=== PATIENT | male | born 1970 | race Caucasian/White ===

== ENCOUNTER 2017-03-30 00:41 | Emergency (ER) | payer BC ==
[~2017-03-30] VITALS: Ht 172.7 cm; Wt 86.2 kg
[~2017-03-30 00:41] MED LIST: ACHYD1T PO; ALPR0.25 PO; CIPR500T4 PO; CIPR500T78 PO; HYDR-3816 PO; HYDR-3876 PO; HYDR-753 PO; HYDR118S10 PO; LEVO500T2 PO; MTP50T PO; NITR-65 PO; NITR-68 PO; NITR100C3 PO; OXYC-12 PO; OXYC-465 PO; POTA10TA36 PO; TAMS0.4C2 PO; TAMS0.4C98 PO
[2017-03-30] MEDS ORDERED: ALFUZOSIN HCL 10 MG TAB (UROXATRAL) PO ONE ×2 (00:52→03:00)
[2017-03-30] MEDS ORDERED: KETOROLAC 30 MG/ML VIAL ONE (00:52)
[2017-03-30] MEDS ORDERED: ONDANSETRON 4 MG/2 ML (SDV) Z0FRAN ONE (00:52)
[2017-03-30] MEDS ORDERED: NS IV 1000 ML 1,000 ML ONE (00:53)
[2017-03-30] MEDS ORDERED: morphine INJ 10 MG/ML 1ML (SYR OR VIAL) ONE (02:15)
[2017-03-30 02:36] LABS: BILIRUBIN,URINE NEGATIVE (NEGATIVE); KETONES,URINE NEGATIVE (NEGATIVE); LEUKOCYTE ESTERASE ,URINE 1+ (NEGATIVE); NITRITE,URINE NEGATIVE (NEGATIVE); PH,URINE 5 (5-9); PROTEIN,URINE 2+ (NEGATIVE); SQUAMOUS EPITHELIAL CELL,UR 0-2 /HPF; UROBILINOGEN,URINE 1 MG/DL (NORMAL)
--- OUTSIDE RECORDS SUMMARY | 2017-03-30 02:39 | XMS REPORT | Continuity of Care Document ---
Author Author [facility] Organization [facility] Address Unknown Phone Unavailable Allergies Active Description Code Type Severity Reaction Onset Reported/Identified Relationship to Patient Clinical Status Yes No Known Drug Allergies [id number] Drug Allergy Unknown N/ A 04/07/2016 Medications Problems Date Dx Coded Attending Type Code Diagnosis Diagnosed By 03/11/2016 TRACY FOFANA MD Ot N20.2 CALCULUS OF KIDNEY WITH CALCULUS OF URET 03/11/2016 TRACY FOFANA MD Ot R10.32 LEFT LOWER QUADRANT PAIN 03/12/2016 TRACY FOFANA MD, Ot N20.2 CALCULUS OF KIDNEY WITH CALCULUS OF URET 03/12/2016 TRACY FOFANA MD Ot R10.32 LEFT LOWER QUADRANT PAIN 03/12/2016 Ot 592.0 CALCULUS OF KIDNEY 03/12/2016 Ot 592.1 CALCULUS OF URETER 03/12/2016 RACHEL WAITE MD Ot N20.0 CALCULUS OF KIDNEY 03/12/2016 RACHEL WAITE MD Ot N20.1 CALCULUS OF URETER 03/12/2016 RACHEL WAITE MD Ot Z01.818 ENCOUNTER FOR OTHER PREPROCEDURAL EXAMIN 03/15/2016 RACHEL WAITE MD Ot N20.0 CALCULUS OF KIDNEY 03/15/2016 RACHEL WAITE MD Ot N20.1 CALCULUS OF URETER 03/15/2016 RACHEL WAITE MD Ot Z01.818 ENCOUNTER FOR OTHER PREPROCEDURAL EXAMIN 03/16/2016 RACHEL WAITE MD Ot N20.2 CALCULUS OF KIDNEY WITH CALCULUS OF URET 03/17/2016 RACHEL WAITE MD Ot N20.2 CALCULUS OF KIDNEY WITH CALCULUS OF URET 03/18/2016 RACHEL WAITE MD Ot N20.0 CALCULUS OF KIDNEY 03/18/2016 RACHEL WAITE MD Ot N20.1 CALCULUS OF URETER 03/18/2016 RACHEL WAITE MD Ot Z01.818 ENCOUNTER FOR OTHER PREPROCEDURAL EXAMIN 03/18/2016 KINSEY CALI FIELD APPRAISER Ot N20.1 CALCULUS OF URETER 03/18/2016 KINSEY CALI FIELD APPRAISER Ot R10.32 LEFT LOWER QUADRANT PAIN 03/18/2016 KINSEY CALI FIELD APPRAISER Ot R11.10 VOMITING, UNSPECIFIED 03/19/2016 KINSEY CALI FIELD APPRAISER Ot N20.1 CALCULUS OF URETER 03/19/2016 KINSEY CALI FIELD APPRAISER Ot R10.32 LEFT LOWER QUADRANT PAIN 03/19/2016 KINSEY CALI FIELD APPRAISER Ot R11.10 VOMITING, UNSPECIFIED 03/31/2016 RACHEL WAITE MD Ot N20.0 CALCULUS OF KIDNEY 03/31/2016 RACHEL WAITE MD Ot Z98.89 OTHER SPECIFIED POSTPROCEDURAL STATES 04/07/2016 Ot 592.0 CALCULUS OF KIDNEY 04/07/2016 Ot 592.1 CALCULUS OF URETER 04/07/2016 RACHEL WAITE MD Ot N20.2 CALCULUS OF KIDNEY WITH CALCULUS OF URET 04/07/2016 MARIANN RODRIGUES, RACHEL Lee Ot Z01.818 ENCOUNTER FOR OTHER PREPROCEDURAL EXAMIN 04/09/2016 RACHEL WAITE MD Ot N20.2 CALCULUS OF KIDNEY WITH CALCULUS OF URET 04/09/2016 RACHEL WAITE MD Ot Z01.818 ENCOUNTER FOR OTHER PREPROCEDURAL EXAMIN 04/13/2016 RACHEL WAITE MD Ot N20.0 CALCULUS OF KIDNEY 04/13/2016 RACHEL WAITE MD Ot Z98.89 OTHER SPECIFIED POSTPROCEDURAL STATES 04/13/2016 RACHEL WAITE MD Ot N20.0 CALCULUS OF KIDNEY 04/15/2016 RCAHEL WAITE MD Ot N20.0 CALCULUS OF KIDNEY 04/15/2016 RACHEL WAITE MD Ot N20.0 CALCULUS OF KIDNEY 04/15/2016 RACHEL WAITE MD Ot Z98.89 OTHER SPECIFIED POSTPROCEDURAL STATES 05/04/2016 RACHEL WAITE MD Ot N20.0 CALCULUS OF KIDNEY 05/12/2016 MARIANN RODRIGUES, RACHEL A Ot N20.0 CALCULUS OF KIDNEY 06/10/2016 MARIANN RODRIGUES, RACHEL A Ot N20.0 CALCULUS OF KIDNEY 06/22/2016 MARIANN RODRIGUES, RACHEL Rosa Ot N20.0 CALCULUS OF KIDNEY 06/22/2016 MARIANN RODRIGUES, RACHEL Lee Ot Z01.818 ENCOUNTER FOR OTHER PREPROCEDURAL EXAMIN 06/24/2016 MARIANN RODRIGUES, RACHEL Lee Ot N20.0 CALCULUS OF KIDNEY Procedures Results Test Result Range Methicillin resistant Staphylococcus aureus (MRSA) screening culture - 08:01 Methicillin resistant Staphylococcus aureus (MRSA) screening culture NEG NRG Complete blood count (CBC) with automated white blood cell (WBC) differential - 03/18/16 17:49 Blood leukocytes automated count (number/volume) 13.3 10*3/ uL 4.3-11.0 Blood erythrocytes automated count (number/volume) 4.75 10*6 /uL 4.35-5.85 Venous blood hemoglobin measurement (mass/volume) 15.8 g/dL 13.3-17.7 Blood hematocrit (volume fraction) 46 % 40-54 Automated erythrocyte mean corpuscular volume 98 [foz_us] 80-99 Automated erythrocyte mean corpuscular hemoglobin (mass per erythrocyte) 33 pg 25-34 Automated erythrocyte mean corpuscular hemoglobin concentration measurement ( mass/volume) 34 g/dL 32-36 Automated erythrocyte distribution width ratio 13.1 % 10.0-14.5 Automated blood platelet count (count/volume) 213 10*3/uL 130-400 Automated blood platelet mean volume measurement 8.8 [foz_us ] 7.4-10.4 Automated blood neutrophils/100 leukocytes 76 % 42-75 Automated blood lymphocytes/100 leukocytes 12 % 12-44 Blood monocytes/100 leukocytes 11 % 0-12 Automated blood eosinophils/100 leukocytes 0 % 0-10 Automated blood basophils/100 leukocytes 0 % 0-10 Blood neutrophils automated count (number/volume) 10.1 10*3 1.8-7.8 Blood lymphocytes automated count (number/volume) 1.6 10*3 1.0-4.0 Blood monocytes automated count (number/volume) 1.5 10*3 0.0-1.0 Automated eosinophil count 0.0 10*3/uL 0.0-0.3 Automated blood basophil count (count/volume) 0.0 10*3/uL 0.0-0.1 Whole blood basic metabolic panel - 03/18/16 17:49 Serum or plasma sodium measurement (moles/volume) 143 mmol/ L 135-145 Serum or plasma potassium measurement (moles/volume) 3.9 mmol/L 3.6-5.0 Serum or plasma chloride measurement (moles/volume) 103 mmol /L 98-107 Carbon dioxide 28 mmol/L 21-32 Serum or plasma anion gap determination (moles/volume) 12 mmol/L 5-14 Serum or plasma urea nitrogen measurement (mass/volume) 11 mg/dL 7-18 Serum or plasma creatinine measurement (mass/volume) 1.28 mg /dL 0.60-1.30 Serum or plasma urea nitrogen/creatinine mass ratio 9 NRG Serum or plasma creatinine measurement with calculation of estimated glomerular filtration rate 60 NRG Serum or plasma glucose measurement (mass/volume) 124 mg/dL 70-105 Serum or plasma calcium measurement (mass/volume) 9.2 mg/dL 8.5-10.1 Complete urinalysis with reflex to culture - 03/18/16 18:53 Urine color determination WILMER NRG Urine clarity determination CLEAR NRG Urine pH measurement by test strip 6 5- 9 Specific gravity of urine by test strip 1.020 1.016-1.022 Urine protein assay by test strip, semi-quantitative 2+ NEGATIVE Urine glucose detection by automated test strip NEGATIVE NEGATIVE Erythrocytes detection in urine sediment by light microscopy 5+ NEGATIVE Urine ketones detection by automated test strip NEGATIVE NEGATIVE Urine nitrite detection by test strip NEGATIVE NEGATIVE Urine total bilirubin detection by test strip NEGATIVE NEGATIVE Urine urobilinogen measurement by automated test strip (mass/volume) 1 mg/dL NORMAL Urine leukocyte esterase detection by dipstick 2+ NEGATIVE Automated urine sediment erythrocyte count by microscopy (number/high power field) [HPF] NRG Automated urine sediment leukocyte count by microscopy (number/high power field ) [HPF] NRG Bacteria detection in urine sediment by light microscopy TRACE NRG Crystals detection in urine sediment by light microscopy NONE NRG Casts detection in urine sediment by light microscopy NONE NRG Mucus detection in urine sediment by light microscopy NEGATIVE NRG Complete urinalysis with reflex to culture YES NRG Bacterial urine culture - 03/18/16 18:53 Bacterial urine culture NG NRG Methicillin resistant Staphylococcus aureus (MRSA) screening culture - 06:15 Methicillin resistant Staphylococcus aureus (MRSA) screening culture NEG NRG Complete urinalysis with reflex to culture - 03/30/17 01:10 Urine color determination YELLOW NRG Urine clarity determination SLIGHTLY CLOUDY NRG Urine pH measurement by test strip 5 5- 9 Specific gravity of urine by test strip 1.025 1.016-1.022 Urine protein assay by test strip, semi-quantitative 2+ NEGATIVE Urine glucose detection by automated test strip NEGATIVE NEGATIVE Erythrocytes detection in urine sediment by light microscopy 5+ NEGATIVE Urine ketones detection by automated test strip NEGATIVE NEGATIVE Urine nitrite detection by test strip NEGATIVE NEGATIVE Urine total bilirubin detection by test strip NEGATIVE NEGATIVE Urine urobilinogen measurement by automated test strip (mass/volume) 1 mg/dL NORMAL Urine leukocyte esterase detection by dipstick 1+ NEGATIVE Automated urine sediment erythrocyte count by microscopy (number/high power field) > [HPF] NRG Automated urine sediment leukocyte count by microscopy (number/high power field ) NONE NRG Bacteria detection in urine sediment by light microscopy NEGATIVE NRG Squamous epithelial cells detection in urine sediment by light microscopy 0-2 NRG Crystals detection in urine sediment by light microscopy NONE NRG Casts detection in urine sediment by light microscopy NONE NRG Mucus detection in urine sediment by light microscopy SMALL NRG Complete urinalysis with reflex to culture NO NRG Urine drug screening test - 03/30/17 01:10 Urine phencyclidine detection by screening method NEGATIVE NEGATIVE Urine benzodiazepines detection by screening method POSITIVE NEGATIVE Urine cocaine detection NEGATIVE NEGATIVE Urine amphetamines detection by screening method NEGATIVE NEGATIVE Urine methamphetamine detection by screening method NEGATIVE NEGATIVE Urine cannabinoids detection by screening method NEGATIVE NEGATIVE Urine opiates detection by screening method POSITIVE NEGATIVE Urine barbiturates detection NEGATIVE NEGATIVE Screening urine tricyclic antidepressants detection NEGATIVE NEGATIVE Urine methadone detection by screening method NEGATIVE NEGATIVE Urine oxycodone detection NEGATIVE NEGATIVE Urine propoxyphene detection NEGATIVE NEGATIVE Encounters ACCT No. Visit Date/Time Discharge Status Pt. Type Provider Facility Loc./Unit Complaint [id number] 04/13/2016 06:02:00 2015 09:50:00 DIS Outpatient MARIANN RODRIGUES, RACHEL [facility] SDC LEFT URETERAL AND RIGHT RENAL STONE [id number] 04/07/2016 05:38:00 2015 10:20:00 DIS Outpatient RACHEL WAITE MD [facility] PREOP LT URETERAL AND RT RENAL STONE [id number] 03/18/2016 17:39:00 2015 20:46:00 DIS Emergency KINSEY CALI APRN [facility] ER VOMITING;DEHYDRATION [id number] 03/16/2016 07:34:00 2015 12:50:00 DIS Outpatient RACHEL WAITE MD [facility] SDC LEFT STONE [id number] 03/12/2016 05:32:00 2015 09:41:00 DIS Outpatient RACHEL WAITE MD [facility] PREOP LEFT STONE [id number] 03/11/2016 08:14:00 2015 10:12:00 DIS Emergency TRACY FOFANA MD [facility] ER LEFT FLANK PAIN [id number] 02/11/2014 08:52:00 2013 00:01:00 DIS Outpatient [id number] 01/22/2014 15:29:00 2013 23:59:59 CLS Outpatient [id number] 01/08/2014 15:02:00 2013 23:59:59 CLS Outpatient [id number] 12/12/2013 06:25:00 2013 10:40:00 DIS Outpatient [id number] 12/11/2013 07:23:00 2013 23:59:59 CLS Outpatient [id number] 12/10/2013 14:38:00 2013 23:59:59 CLS Outpatient [id number] 11/27/2013 07:04:00 2013 12:30:00 DIS Outpatient [id number] 11/23/2013 12:00:00 2013 23:59:59 CLS Outpatient [id number] 11/21/2013 15:09:00 2013 23:59:59 CLS Outpatient [id number] 03/30/2017 02:37:00 Document Registration [id number] 06/23/2016 09:00:00 PEN Preadmit RACHEL WAITE MD [facility] SDC RIGHT STONE [id number] 06/21/2016 05:43:00 ACT Outpatient RACHEL WAITE MD [facility] PREOP RIGHT STONE [id number] 06/09/2016 15:29:00 ACT Outpatient RACHEL WAITE MD [facility] RAD RT RENAL STONE [id number] 05/03/2016 09:23:00 ACT Outpatient RACHEL WAITE MD [facility] RAD DX BI RENAL STONES [id number] 03/30/2016 13:08:00 ACT Outpatient RACHEL WAITE MD [facility] RAD UR STONE BILATERAL [id number] 05/09/2014 00:00:00 Document Registration
[2017-03-30] MEDS ORDERED: RX-ONDANSETRON 4 MG ODT (ZOFRAN) PPK #4 PO STA (02:56)
[2017-03-30] MEDS ORDERED: LEVOFLOXACIN 500 MG TAB (LEVAQUIN) PO STA (02:56)
[2017-03-30] MEDS ORDERED: morphine INJ 10 MG/ML 1ML (SYR OR VIAL) IVP STA (02:56)
[2017-03-30 02:57] LABS: BASOPHILS % (AUTO) 0 % (0-10); EOSINOPHILS % (AUTO) 0 % (0-10); LYMPHOCYTES # (AUTO) 0.9 X 10^3 (1.0-4.0); LYMPHOCYTES % (AUTO) 8 % (12-44); MEAN CORPUSCULAR HEMOGLOBIN 34 PG (25-34); MEAN CORPUSCULAR HGB CONC 34 G/DL (32-36); MEAN CORPUSCULAR VOLUME 98 FL (80-99); MEAN PLATELET VOLUME 8.7 FL (7.4-10.4); MONOCYTES # (AUTO) 0.7 X 10^3 (0.0-1.0); MONOCYTES % (AUTO) 6 % (0-12); NEUTROPHILS % (AUTO) 86 % (42-75); PLATELET COUNT 247 10^3/uL (130-400); RED BLOOD COUNT 4.66 10^6/uL (4.35-5.85); RED CELL DISTRIBUTION WIDTH 13.2 % (10.0-14.5); WHITE BLOOD COUNT 11.6 10^3/uL (4.3-11.0)
[2017-03-30 02:58] LABS: ALBUMIN 4.3 GM/DL (3.2-4.5); BILIRUBIN,TOTAL 0.5 MG/DL (0.1-1.0); CALCIUM 9.3 MG/DL (8.5-10.1); CREATININE SERUM 1.29 MG/DL (0.60-1.30); POTASSIUM 4.2 MMOL/L (3.6-5.0); TOTAL PROTEIN 7.3 GM/DL (6.4-8.2)
[2017-03-30] MEDS ORDERED: KETOROLAC 30 MG/ML VIAL IVP ONE (03:00)
[2017-03-30] MEDS ORDERED: morphine INJ 10 MG/ML 1ML (SYR OR VIAL) IVP ONE (03:00)
[2017-03-30] MEDS ORDERED: RX-HYDROCODONE/APAP 5/325 MG #4 TAB PK PO PRN (03:00)
[2017-03-30] MEDS ORDERED: NS IV 1000 ML 1,000 ML IV ONE (03:00)
[2017-03-30] MEDS ORDERED: HYDR-87 PO (03:00)
[2017-03-30] MEDS ORDERED: ONDA4TAB8 PO (03:00)
[2017-03-30] MEDS ORDERED: ONDANSETRON 4 MG/2 ML (SDV) Z0FRAN IVP ONE (03:00)
[2017-03-30] MEDS ORDERED: TAMS0.4C98 PO ×2 (03:00→14:53)
[2017-03-30] MEDS ORDERED: LEVO500T2 PO (03:00)
--- NOTE | 2017-03-30 03:01 | ED Abdominal Pain ---
General Chief Complaint: Abdominal/GI Problems Stated Complaint: KIDNEY STONE Nursing Triage Note: RIGHT FLANK PAIN, NAUSEA SINCE APPROX. 199903/29/17 HX RENAL STONES Sepsis Screen: No Definite Risk Source of Information: Patient History of Present Illness Time Seen By Provider: 00:48 Initial Comments PT STATES HE IS PASSING A KIDNEY STONE--C/O RLQ PAIN RADIATING TO RIGHT FLANK-- SUDDEN ONSET OF PAIN AT 2000 TONIGHT C/O NAUSEA, NO VOMITING + SWEATS NO PAIN ON URINATION OR DIFFICULTY ON URINATION HAS HISTORY OF AT LEAST 8 KIDNEY STONES, PASSED ONE ON HIS OWN 2 WEEKS AGO HAS HAD TO HAVE LITHOTRIPSY X2 LAST YEAR, BY DR. WAITE PCP: [facility] UROLOGY: DR. WAITE Allergies and Home Medications Allergies Coded Allergies: No Known Drug Allergies (Unverified , 04/07/16) Home Medications Alprazolam 0.25 Mg Tablet, 0.25 MG PO HS, (Reported) Hydrocodone/Acetaminophen 1 Each Tablet, 1-2 EACH PO Q4H PRN for PAIN, #60 Prescribed by: TREVOR RODRIGUEZ on 04/13/16 09 Hydrocodone/Ibuprofen 1 Each Tablet, 1-2 EACH PO Q4H, #20 Prescribed by: SHERRI MARY on 03/30/17 0300 Levofloxacin 500 Mg Tablet, 500 MG PO DAILY, #10 Prescribed by: SHERRI MARY on 03/30/17 0300 Metoprolol Tartrate 50 Mg Tablet, 50 MG PO DAILY, (Reported) Nitrofurantoin Macrocrystal 100 Mg Capsule, 100 MG PO BID, #14 Prescribed by: TREVOR RODRIGUEZ on 04/13/16 09 Ondansetron 4 Mg Tab.rapdis, 4 MG PO Q4H, #10 Prescribed by: SHERRI MARY on 03/30/17 0300 Tamsulosin HCl 0.4 Mg Cap, 0.4 MG PO DAILY, #14 Prescribed by: TREVOR RODRIGUEZ on 04/13/16 09 Tamsulosin HCl 0.4 Mg Cap, 0.4 MG PO DAILY, #10 Prescribed by: SHERRI MARY on 03/30/17 0300 Review of Systems Constitutional: see HPI, diaphoresis, No fever Respiratory: No Symptoms Reported Cardiovascular: No Symptoms Reported Gastrointestinal: See HPI, Abdominal Pain, Denies Constipated, Denies Diarrhea , Nausea, Denies Vomiting Genitourinary: See HPI, Flank Pain, Denies Hematuria Musculoskeletal: no symptoms reported Skin: no symptoms reported Psychiatric/Neurological: No Symptoms Reported Endocrine: No Symptoms Reported Hematologic/Lymphatic: No Symptoms Reported Past Btpixnx-Ndytfu-Bhqcbd Hx Patient Social History Alcohol Use: Rarely Uses Recreational Drug Use: No Smoking Status: Former Smoker Type Used: Cigarettes Recent Foreign Travel: No Contact w/Someone Who Travel: No Recent Infectious Disease Expo: No Recent Hopitalizations: No Immunizations Up To Date Tetanus Booster (TDap): Unknown Seasonal Allergies Seasonal Allergies: No Surgeries HX Surgeries: Yes (C-SPINEFUSION; LITHOTRIPSIES FOR KIDNEY STONES; BILATERAL KNEE SCOPES) Surgeries: Orthopedic, Renal Respiratory Hx Respiratory Disorders: No Cardiovascular Hx Cardiac Disorders: Yes Cardiac Disorders: Hypertension Neurological Hx Neurological Disorders: No Reproductive System Hx Reproductive Disorders: No Sexually Transmitted Disease: No HIV/AIDS: No Genitourinary Hx Genitourinary Disorders: Yes Genitourinary Disorders: Kidney Stones Gastrointestinal Hx Gastrointestinal Disorders: No Musculoskeletal Hx Musculoskeletal Disorders: Yes (KNEE SCOPES BILATERALLY) Endocrine Hx Endocrine Disorders: No HEENT HX ENT Disorders: No Loss of Vision: Denies Hearing Impairment: Denies Cancer Hx Cancer: No Psychosocial Hx Psychiatric Problems: No Integumentary HX Skin/Integumentary Disorder: No Blood Transfusions Hx Blood Disorders: No Adverse Reaction to a Blood Tr: No (N/A) Physical Exam Vital Signs VS - Last 72 Hours, by Label 03/30/17 03/30/17 00:55 03:13 Temp 97.6 97.1 Pulse 76 70 Resp 18 18 B/P (MAP) 132/92 Pulse Ox 97 99 O2 Delivery Room Air Room Air Capillary Refill : Less Than 3 Seconds General Appearance: WD/WN, mild distress (DUE TO PAIN, ROCKING BACK AND FORTH) Neck: normal inspection Respiratory: normal breath sounds, no respiratory distress Cardiovascular: regular rate, rhythm Gastrointestinal: normal bowel sounds, soft, No distended, No guarding, No rebound, tenderness (RLQ/RIGHT FLANK), No hernia, No mass Extremities: normal inspection, no pedal edema, normal capillary refill Back: CVA tenderness (R) Neurologic/Psychiatric: wheel alignment mechanic II-XII nml as tested, no motor/sensory deficits, alert, oriented x 3 Skin: normal color, warm/dry Progress/Results/Core Measures Results/Orders Lab Results Laboratory Tests Test 03/30/17 01:10 Range/Units White Blood Count 11.6 H 4.3-11.0 10^3/uL Red Blood Count 4.66 4.35-5.85 10^6/uL Hemoglobin 15.6 13.3-17.7 G/DL Hematocrit 46 40-54 % Mean Corpuscular Volume 98 80-99 FL Mean Corpuscular Hemoglobin 34 25-34 PG Mean Corpuscular Hemoglobin Concent 34 32-36 G/DL Red Cell Distribution Width 13.2 10.0-14.5 % Platelet Count 247 130-400 10^3/uL Mean Platelet Volume 8.7 7.4-10.4 FL Neutrophils (%) (Auto) 86 H 42-75 % Lymphocytes (%) (Auto) 8 L 12-44 % Monocytes (%) (Auto) 6 0-12 % Eosinophils (%) (Auto) 0 0-10 % Basophils (%) (Auto) 0 0-10 % Neutrophils # (Auto) 10.0 H 1.8-7.8 X 10^3 Lymphocytes # (Auto) 0.9 L 1.0-4.0 X 10^3 Monocytes # (Auto) 0.7 0.0-1.0 X 10^3 Eosinophils # (Auto) 0.0 0.0-0.3 10^3/uL Basophils # (Auto) 0.0 0.0-0.1 10^3/uL Urine Color YELLOW Urine Clarity SLIGHTLY CLOUDY Urine pH 5 5-9 Urine Specific Hiram 1.025 H 1.016-1.022 Urine Protein 2+ H NEGATIVE Urine Glucose (UA) NEGATIVE NEGATIVE Urine Ketones NEGATIVE NEGATIVE Urine Nitrite NEGATIVE NEGATIVE Urine Bilirubin NEGATIVE NEGATIVE Urine Urobilinogen 1 NORMAL MG/DL Urine Leukocyte Esterase 1+ H NEGATIVE Urine RBC (Auto) 5+ H NEGATIVE Urine RBC >100 H /HPF Urine WBC NONE /HPF Urine Squamous Epithelial Cells 0-2 /HPF Urine Crystals NONE /LPF Urine Bacteria NEGATIVE /HPF Urine Casts NONE /LPF Urine Mucus SMALL H /LPF Urine Culture Indicated NO Sodium Level 139 135-145 MMOL/L Potassium Level 4.2 3.6-5.0 MMOL/L Chloride Level 102 98-107 MMOL/L Carbon Dioxide Level 26 21-32 MMOL/L Anion Gap 11 5-14 MMOL/L Blood Urea Nitrogen 15 7-18 MG/DL Creatinine 1.29 0.60-1.30 MG/DL Estimat Glomerular Filtration Rate 59 BUN/Creatinine Ratio 12 Glucose Level 159 H 70-105 MG/DL Calcium Level 9.3 8.5-10.1 MG/DL Total Bilirubin 0.5 0.1-1.0 MG/DL Aspartate Amino Transf (AST/SGOT) 20 5-34 U/L Alanine Aminotransferase (ALT/SGPT) 22 0-55 U/L Alkaline Phosphatase 57 40-136 U/L Total Protein 7.3 6.4-8.2 GM/DL Albumin 4.3 3.2-4.5 GM/DL Urine Opiates Screen POSITIVE H NEGATIVE Urine Oxycodone Screen NEGATIVE NEGATIVE Urine Methadone Screen NEGATIVE NEGATIVE Urine Propoxyphene Screen NEGATIVE NEGATIVE Urine Barbiturates Screen NEGATIVE NEGATIVE Ur Tricyclic Antidepressants Screen NEGATIVE NEGATIVE Urine Phencyclidine Screen NEGATIVE NEGATIVE Urine Amphetamines Screen NEGATIVE NEGATIVE Urine Methamphetamines Screen NEGATIVE NEGATIVE Urine Benzodiazepines Screen POSITIVE H NEGATIVE Urine Cocaine Screen NEGATIVE NEGATIVE Urine Cannabinoids Screen NEGATIVE NEGATIVE My Orders Orders - SHERRI MARY DO Cbc With Automated Diff (03/30/17 01:10) Comprehensive Metabolic Panel (03/30/17 01:10) Drug Screen Stat (Urine) (03/30/17 01:10) Urinalysis (03/30/17 01:10) Ns Iv 1000 Ml (Sodium Chloride 0.9%) (03/30/17 03:00) Ondansetron Injection (Zofran Injectio (03/30/17 03:00) Ketorolac Injection (Toradol Injection) (03/30/17 03:00) Alfuzosin Tablet (Uroxatral Tablet) (03/30/17 03:00) Morphine Injection (Morphine Injection (03/30/17 03:00) Ct Abd/Pelvis Wo(Kidney Stone) (03/30/17 02:56) Abdomen/Kub 1view (03/30/17 02:56) Morphine Injection (Morphine Injection (03/30/17 02:56) Levofloxacin Tablet (Levaquin Tablet) (03/30/17 02:56) Rx-Hydrocodone/Apap 5-325 Mg (Rx-Vicodin (03/30/17 03:00) Rx-Ondansetron Po (Rx-Zofran Po) (03/30/17 02:56) Medications Given in ED Current Medications Medications Dose Ordered Sig/Noni Route Start Time Stop Time Status Last Admin Dose Admin Acetaminophen/ Hydrocodone Bitart 1 ea Q4H PRN PO 03/30/17 03:00 03/30/17 03:22 DC 03/30/17 03:11 1 EA Alfuzosin HCl 10 mg ONCE ONCE PO 03/30/17 03:00 03/30/17 03:01 DC 03/30/17 01:00 10 MG Ketorolac Tromethamine 30 mg ONCE ONCE IVP 03/30/17 03:00 03/30/17 03:01 DC 03/30/17 01:00 30 MG Morphine Sulfate 5 mg ONCE ONCE IVP 03/30/17 03:00 03/30/17 03:01 DC 03/30/17 02:19 5 MG Ondansetron HCl 4 mg ONCE ONCE IVP 03/30/17 03:00 03/30/17 03:01 DC 03/30/17 01:00 4 MG Sodium Chloride 1,000 ml @ 100 mls/hr Q10H ONCE IV 03/30/17 03:00 03/30/17 03:22 DC 03/30/17 01:00 100 MLS/HR Vital Signs/I&O Vital Sign - Last 12Hours 03/30/17 03/30/17 00:55 03:13 Temp 97.6 97.1 Pulse 76 70 Resp 18 18 B/P (MAP) 132/92 Pulse Ox 97 99 O2 Delivery Room Air Room Air Blood Pressure Mean: 105 Progress Note : Progress Note PAIN AND NAUSEA RELIEVED WITH MEDICATIONS PT STATES HE IS GOING TO DR. WAITE'S OFFICE FIRST THING IN THE MORNING. WANTS TO GO HOME AND SLEEP ADVISED PT OF POSSIBLE NEED FOR INTERVENTION, DUE TO SIZE AND LOCATION OF STONE. Diagnostic Imaging Comments KUB--CALCIFICATION TO RIGHT OF L2 VERTEBRA, PENDING RADIOLOGIST REVIEW CT ABDOMEN/PELVIS--8 MM STONE AT UPJ / PROXIMAL RIGHT URETER, WITH MODERATE RIGHT HYDRONEPHROSIS AND PERINEPHRIC AND PERIURETERAL STRANDING--PER STAT RAD VIA FAX @ [id number] Reviewed: Reviewed by Me Departure Impression Impression: Primary Impression: Right ureteral calculus Disposition: HOME, SELF-CARE Condition: Improved Departure-Patient Inst. Referrals: FABIANA OSHEA MD (PCP/Family) Primary Care Physician RACHEL WAITE MD Patient Instructions: Kidney Stones (DC) Add. Discharge Instructions: LOTS OF CLEAR LIQUIDS FOLLOW UP WITH DR. WAITE TODAY FOR FURTHER CARE RETURN TO ER IF WORSE All discharge instructions reviewed with patient and/or family. Voiced understanding. Scripts Ondansetron (Zofran Odt) 4 Mg Tab.rapdis 4 MG PO Q4H for Nausea/Vomiting, #10 TAB Prov: SHERRI MARY DO 03/30/17 Levofloxacin (Levaquin) 500 Mg Tablet 500 MG PO DAILY for INFECTION, #10 TAB Prov: SHERRI MARY DO 03/30/17 Hydrocodone/Ibuprofen (Hydrocodone-Ibuprofen 7.5-200) 1 Each Tablet 1-2 EACH PO Q4H for Pain, #20 TAB Prov: SHERRI MARY DO 03/30/17 Tamsulosin HCl (Flomax) 0.4 Mg Cap 0.4 MG PO DAILY, #10 CAP Prov: SHERRI MARY DO 03/30/17 SHERRI MARY DO Mar 30, 2017 03:01
[2017-03-30 03:13] VITALS: BP 113/74
--- NOTE | 2017-03-30 06:08 | Diagnostic Imaging Report ---
PROCEDURE: CT urinary tract, rule out kidney stone. TECHNIQUE: Multiple contiguous axial images were obtained through the abdomen and pelvis without the use of intravenous contrast. INDICATION: Right flank pain. COMPARISON: None FINDINGS: The lung bases are clear. The liver, gallbladder, pancreas, spleen and adrenal glands appear unremarkable. There are a couple of punctate nonobstructive calculi in the left kidney. The left ureter appears unremarkable. There is an 8 mm stone in the proximal right ureter at the ureteropelvic junction with moderate right hydronephrosis. There are several additional 3-4 mm stones in the right kidney. There is diverticulosis without evidence of diverticulitis. The appendix appears normal. There is no free fluid, free air or adenopathy. There is atherosclerosis of the abdominal aorta without aneurysm formation. No acute osseous abnormality is demonstrated. There is bilateral L5 spondylolysis without evidence of spondylolisthesis. IMPRESSION: 1. There is an 8 mm stone in the proximal right ureter at the level of the ureteropelvic junction with moderate right hydronephrosis. 2. Bilateral nephrolithiasis 3. No additional significant abnormality is seen. Agree with [facility] interpretation Dictated by: Dictated on workstation # [id number]
--- NOTE | 2017-03-30 06:53 | Diagnostic Imaging Report ---
INDICATION: Right flank pain. Exam compared with study 06/09/2016. There is a somewhat jagged an enteric calculus measuring 9.2 mm cephalocaudal projecting just lateral to the distal tip of the right L2 transverse process. This is at the expected level of the ureteropelvic junction. No pelvic stones. IMPRESSION: 9.2 mm stone on the right may be within the right UPJ or proximal ureter. In the setting of flank pain consider CT as further evaluation. Dictated by: Dictated on workstation # [id number]
[2017-03-30] MEDS ORDERED: NITR-65 PO (14:53)
[2017-03-30] MEDS ORDERED: PHEN-640 PO (14:53)
[2017-03-30] MEDS ORDERED: HYDR-3876 PO (14:53)
== END 2017-03-30 03:16 | disposition home or self-care (01) ==
LOC: EDUNIT# 00:41 → ER 00:41
DX: N20.1 Calculus of ureter (principal); I10 Essential (primary) hypertension; Z87.891 Personal history of nicotine dependence; Z87.442 Personal history of urinary calculi; Z98.1 Arthrodesis status
CPT/HCPCS: 36415; 74000; 74176; 80053; 80306; 81000; 85025; 96361; 96374; 96375; 96376

== ENCOUNTER 2017-03-30 10:37 | Day surgery (SDC) | payer BC ==
[~2017-03-30] VITALS: Ht 172.7 cm; Wt 86.2 kg
[~2017-03-30 10:37] MED LIST changes: +HYDR-87 PO; +ONDA4TAB8 PO
[2017-03-30 10:41] VITALS: BP 131/78
[2017-03-30] MEDS ORDERED: ONDANSETRON 4 MG/2 ML (SDV) Z0FRAN ONE ×2 (10:45→10:53)
[2017-03-30] MEDS ORDERED: SCOPOLAMINE 1.5 MG (TRANSDERM-SCOP) PATCH ONE (10:45)
[2017-03-30] MEDS ORDERED: FAMOTIDINE 20MG/2ML IV (PEPCID) ONE (10:46)
[2017-03-30] MEDS ORDERED: NS (IVPB) 50 ML ONE (10:46)
[2017-03-30] MEDS ORDERED: cefTRIAXone 1 GM (ROCEPHIN) VIAL ONE (10:46)
--- NOTE | 2017-03-30 10:49 | Progress Note-Pre Operative ---
Pre-Operative Progress Note H&P Reviewed The H&P was reviewed, patient examined and no changes noted. Date Seen by Provider: Mar 30, 2017 Time Seen by Provider: 10:48 Date H&P Reviewed: Mar 30, 2017 Time H&P Reviewed: 10:48 Pre-Operative Diagnosis: RT PROXIMAL URETERAL STONE RACHEL WAITE MD Mar 30, 2017 10:49 am
[2017-03-30] MEDS: LACTATED RINGERS 1,000 ML IV PRN ×2 (10:50→12:07)
[2017-03-30] MEDS ORDERED: fentaNYL INJECTION 100 MCG/2 ML AMP ONE (10:53)
[2017-03-30] MEDS ORDERED: SEVOFLURANE (ULTANE) 15 ML INHAL SOLN ONE ×5 (10:53→12:15)
[2017-03-30] MEDS ORDERED: LIDOCAINE PF 2% 5 ML (XYLOCAINE) VIAL ONE (10:53)
[2017-03-30] MEDS ORDERED: proPOfol 200 MG/20 ML (DIPRIVAN) VIAL IV ONE (10:53)
[2017-03-30] MEDS ORDERED: MIDAZOLAM 2 MG/2 ML (VERSED) VIAL ONE (10:53)
[2017-03-30] MEDS ORDERED: LACTATED RINGERS 1,000 ML IV ONE ×2 (10:53→12:16)
--- NOTE | 2017-03-30 10:56 | Progress Note-Post Operative ---
Post-Operative Progess Note Surgeon (s)/Security Management Specialist (s) Surgeon RACHEL WAITE MD Security Management Specialist: N/A Pre-Operative Diagnosis RT PROXIMAL URETERAL STONE AND RT RENAL STONES (2) Post-Operative Diagnosis SAME Procedure & Operative Findings Date of Procedure 03/30/17 Procedure Performed/Findings RT ESWL Anesthesia Type GENERAL Estimated Blood Loss Estimated blood loss (mL): N/A Specimens/Packing Specimens Removed N/A Packing: N/A RACHEL WAITE MD Mar 30, 2017 10:56 am
--- NOTE | 2017-03-30 10:58 | Discharge Inst-Urology ---
Discharge Inst-Urology Discharge Medications New, Converted, or Re-newed RX: RX on Chart Patient Instructions/Follow Up Plan Please make appointment to been seen in office Wednesday 04/11, KUB prior to it KUB on way home Post ESWL instructions Increase oral fluids for 48 hours and then as needed. Diet and Activity as tolerated. If questions or concerns contact your physician Or seek help at emergency department. RACHEL WAITE MD Mar 30, 2017 10:57 am
[2017-03-30] MEDS ORDERED: cefTRIAXone 1 GM/NS 50 ML IVPB IV ONE ×2 (11:00)
[2017-03-30] MEDS ORDERED: CATHETER FLUSH 10 ML SYR IV PRN (11:00)
[2017-03-30] MEDS ORDERED: FUROSEMIDE 40 MG/4 ML INJ (LASIX) ONE (11:02)
[2017-03-30] MEDS ORDERED: SCOPOLAMINE 1.5 MG (TRANSDERM-SCOP) PATCH TOP ONE (12:15)
[2017-03-30] MEDS ORDERED: FAMOTIDINE 20MG/2ML IV (PEPCID) IV ONE (12:15)
[2017-03-30] MEDS ORDERED: ONDANSETRON 4 MG/2 ML (SDV) Z0FRAN IV ONE (12:15)
[2017-03-30 13:30] VITALS: BP 130/100
[2017-03-30] MEDS ORDERED: HYDROcodone/APAP 10 MG/325 MG (LORTAB) TAB PO ONE (14:00)
[2017-03-30] MEDS ORDERED: PHENAZOPYRIDINE 100 MG (PYRIDIUM) TABLET PO ONE (14:00)
[2017-03-30 14:15] VITALS: BP 137/83
[2017-03-30 14:50] VITALS: BP 134/73
[2017-03-30] MEDS ORDERED: TAMS0.4C98 PO (14:53)
[2017-03-30] MEDS ORDERED: PHEN-640 PO (14:53)
[2017-03-30] MEDS ORDERED: NITR-65 PO (14:53)
[2017-03-30] MEDS ORDERED: HYDR-3876 PO (14:53)
[2017-03-30 15:05] VITALS: BP 134/73
--- NOTE | 2017-03-30 15:06 | Diagnostic Imaging Report ---
EXAMINATION: Supine abdomen at 02:43 p.m. INDICATION: Post ESWL. FINDINGS: The exam performed earlier today noted a 9 mm calcific density just lateral to the right transverse process of L2. In the interval since the prior study, the patient has undergone lithotripsy. The calculus just lateral to the right transverse process of L2 now measures only 2.9 mm. There is another calcific density overlying the tip of the right transverse process of L4. This measures 5.4 mm and I suspect that this represents a fragment from the calculus seen on the prior exam. Most likely this calcific density is in the midportion of the right ureter. The other calculi overlying the right kidney are partially visualized. IMPRESSION: 1. The 9 mm calculus in the right upper quadrant seen previously has been fragmented. One the larger fragments now overlies the right transverse process of L4. 2. The overall appearance of the abdomen has not changed significantly otherwise. Dictated by: Dictated on workstation # [id number]
--- NOTE | 2017-03-30 16:17 | OPERATIVE REPORT ---
DATE OF SERVICE: 03/30/2017 PREOPERATIVE DIAGNOSES: 1. Right ureteropelvic junction stone. 2. Bilateral ureteral stones. POSTOPERATIVE DIAGNOSES: 1. Right ureteropelvic junction stone. 2. Bilateral ureteral stones. OPERATION PERFORMED: Right ESWL. SURGEON: Jose E Waite MD ANESTHESIA: General. COMPLICATIONS: None. PROCEDURE: Under satisfactory general anesthesia and the patient in supine position, the right UPJ stone was localized and shocks were delivered at kV of 6. The stone fragmented into mostly two pieces; one went back into the renal pelvis, the other one went down into the proximal ureter at the level of L3-L4. I went ahead and shocked the one in the kidney first at a kV of 5 and a total of 2800 shocks really nicely fragmented the stone. Then, we went after the one in the ureter and delivered 3000 shocks at kV of 6, a total of 5800 shocks between the kidney and the ureter. The patient received 40 mg of Lasix and 30 mg of Toradol IV at the end of the procedure. He tolerated the procedure and anesthesia well and was sent to the recovery room in stable condition. Job ID: [id number] DocumentID: [id number] Dictated Date: 03/30/2017 12:28:16 Degreasing Solution Mixer Date: 03/30/2017 13:50:52 Dictated By: JOSE E WAITE MD
== END 2017-03-30 15:05 | disposition home or self-care (01) ==
LOC: SDC 10:37
PROVIDERS: ATTEND Urology
DX: N20.1 Calculus of ureter (principal); I10 Essential (primary) hypertension; Z79.899 Other long term (current) drug therapy
CPT/HCPCS: 74000; 87081

== ENCOUNTER → 2017-04-11 | Outpatient (CLI) | payer BC ==
[~2017-04-11] MED LIST changes: +PHEN-640 PO
--- NOTE | 2017-04-11 14:38 | Diagnostic Imaging Report ---
INDICATION: Hematuria status post ESWL. History of ureteral calculus. COMPARISON: CT dated 03/30/2017. FINDINGS: Two supine radiographic views of the abdomen were obtained. Small extraosseous calcification is again identified just lateral to the right transverse process of L1. It measures approximately 4 mm in diameter and does appear to be medial to the right renal shadow. Multiple other calcifications are also seen projecting over the bilateral renal shadows consistent with bilateral nephrolithiasis. No other calcifications are seen along the expected course of the right ureter. No unexpected radiopaque foreign bodies are seen. Small bowel loops are nondistended. There is no large collection of free intraperitoneal air. IMPRESSION: 1. Probable retained 4 mm calculus within the proximal right ureter. 2. Bilateral nephrolithiasis. Dictated by: Dictated on workstation # [id number]
== END ==
LOC: RAD 13:52
PROVIDERS: ATTEND Urology
DX: N20.0 Calculus of kidney (principal); R31.9 Hematuria, unspecified
CPT/HCPCS: 74000

== ENCOUNTER 2017-04-12 08:20 | Day surgery (SDC) | payer BC ==
[~2017-04-12] VITALS: Ht 172.7 cm; Wt 86.2 kg
--- NOTE | 2017-04-12 08:33 | Progress Note-Pre Operative ---
Pre-Operative Progress Note H&P Reviewed The H&P was reviewed, patient examined and no changes noted. Date Seen by Provider: Apr 12, 2017 Time Seen by Provider: 08:32 Date H&P Reviewed: Apr 12, 2017 Time H&P Reviewed: 08:32 Pre-Operative Diagnosis: RT URETERAL AND BILATERAL RENAL STONES RACHEL WAITE MD Apr 12, 2017 8:33 am
[2017-04-12 08:45] VITALS: BP 125/82
[2017-04-12] MEDS ORDERED: FAMOTIDINE 20MG/2ML IV (PEPCID) IV ONE (08:45)
[2017-04-12] MEDS ORDERED: SCOPOLAMINE 1.5 MG (TRANSDERM-SCOP) PATCH TOP ONE (08:45)
[2017-04-12] MEDS ORDERED: CATHETER FLUSH 10 ML SYR IV PRN (08:45)
[2017-04-12] MEDS ORDERED: ONDANSETRON 4 MG/2 ML (SDV) Z0FRAN IV ONE (08:45)
[2017-04-12] MEDS ORDERED: cefTRIAXone 1 GM/NS 50 ML IVPB IV ONE ×2 (08:45)
[2017-04-12] MEDS ORDERED: MIDAZOLAM 2 MG/2 ML (VERSED) VIAL ONE ×2 (09:03→09:31)
--- NOTE | 2017-04-12 09:16 | Diagnostic Imaging Report ---
INDICATION: Nephrolithiasis. COMPARISON: January 09, 2017. FINDINGS: The bowel gas pattern is nonspecific. There are a few punctate stones remaining overlying the right kidney. The previously described stone near the right UPJ is not identified on today's exam. The bowel gas pattern is nonspecific. The osseous structures are unremarkable. IMPRESSION: The previously identified stone in the region of the right UPJ is no longer visualized. There do appear to be persistent stones within the right kidney. Nonspecific bowel gas pattern. Dictated by: Dictated on workstation # [id number]
[2017-04-12] MEDS ORDERED: DEXAMETHASONE 10 MG/ML (DECADRON) 1 ML VIAL ONE (09:30)
[2017-04-12] MEDS ORDERED: LIDOCAINE PF 2% 5 ML (XYLOCAINE) VIAL ONE (09:30)
[2017-04-12] MEDS ORDERED: SEVOFLURANE (ULTANE) 15 ML INHAL SOLN ONE ×3 (09:30→10:18)
[2017-04-12] MEDS ORDERED: MIDAZOLAM 2 MG/2 ML (VERSED) VIAL IVP ONE (09:30)
[2017-04-12] MEDS: LACTATED RINGERS 1,000 ML IV PRN ×2 (09:30→10:51)
[2017-04-12] MEDS ORDERED: ONDANSETRON 4 MG/2 ML (SDV) Z0FRAN ONE (09:30)
[2017-04-12] MEDS ORDERED: proPOfol 200 MG/20 ML (DIPRIVAN) VIAL IV ONE (09:30)
[2017-04-12] MEDS ORDERED: LACTATED RINGERS 1,000 ML IV ONE ×2 (09:30→10:32)
[2017-04-12] MEDS ORDERED: fentaNYL INJECTION 100 MCG/2 ML AMP ONE (09:31)
[2017-04-12] MEDS ORDERED: PHENYLEPHRINE 100 MCG/ML 10 ML (ANESTHESIA) SYR ONE (10:00)
--- NOTE | 2017-04-12 10:16 | Progress Note-Post Operative ---
Post-Operative Progess Note Surgeon (s)/Medical Economics Consultant (s) Surgeon RACHEL WAITE MD Medical Economics Consultant: N/A Pre-Operative Diagnosis RT URETERAL AND BILATERAL RENAL STONES Post-Operative Diagnosis SAME Procedure & Operative Findings Date of Procedure 04/12/17 Procedure Performed/Findings RT ESWL Anesthesia Type GENERAL Estimated Blood Loss Estimated blood loss (mL): N/A Specimens/Packing Specimens Removed N/A Packing: N/A RACHEL WAITE MD Apr 12, 2017 10:16 am
[2017-04-12] MEDS ORDERED: FUROSEMIDE 40 MG/4 ML INJ (LASIX) ONE (10:18)
--- NOTE | 2017-04-12 10:18 | Discharge Inst-Urology ---
Discharge Inst-Urology Discharge Medications New, Converted, or Re-newed RX: RX on Chart Patient Instructions/Follow Up Plan Please make appointment to been seen in office in 4 weeks. Post ESWL instructions Increase oral fluids for 48 hours and then as needed. Diet and Activity as tolerated. If questions or concerns contact your physician Or seek help at emergency department. RACHEL WAITE MD Apr 12, 2017 10:18 am
[2017-04-12 11:20] VITALS: BP 113/72
--- NOTE | 2017-04-12 11:26 | OPERATIVE REPORT ---
DATE OF SERVICE: 04/12/2017 PREOPERATIVE DIAGNOSIS: Right proximal ureteral and bilateral renal stones. POSTOPERATIVE DIAGNOSIS: Right proximal ureteral and bilateral renal stones. OPERATION PERFORMED: Right ESWL. SURGEON: Greer Waite MD ANESTHESIA: General. COMPLICATIONS: None. PROCEDURE: Under satisfactory general anesthesia, the patient in supine position on ESWL table, the right proximal ureteral stone was localized with some difficulty; however, we ended up localizing it. Shocks were delivered with kV of 5. After 1000 shocks, I could not visualize the stone anymore. The patient received 30 of Toradol and 40 mg of Lasix at the end of the procedure IV. He tolerated the procedure and anesthesia well and was sent to recovery room in stable condition. Job ID: [id number] DocumentID: [id number] Dictated Date: 04/12/2017 10:20:51 Dimmer Board Operator Date: 04/12/2017 11:25:45 Dictated By: RACHEL WAITE MD
[2017-04-12] MEDS ORDERED: NITR-65 PO (11:37)
[2017-04-12] MEDS ORDERED: HYDR-3876 PO (11:37)
[2017-04-12] MEDS ORDERED: TAMS0.4C98 PO (11:37)
[2017-04-12 11:50] VITALS: BP 125/84
[2017-04-12 12:10] VITALS: BP 125/84
== END 2017-04-12 12:10 | disposition home or self-care (01) ==
LOC: SDC 08:20
PROVIDERS: ATTEND Urology
DX: N20.2 Calculus of kidney with calculus of ureter (principal); I10 Essential (primary) hypertension; M19.91 Primary osteoarthritis, unspecified site; Z79.899 Other long term (current) drug therapy
CPT/HCPCS: 74000; 87081

== ENCOUNTER → 2017-06-07 | Outpatient (CLI) | payer BC ==
--- NOTE | 2017-06-07 18:59 | Diagnostic Imaging Report ---
EXAMINATION: Supine view of the abdomen. INDICATION: Right renal stone. FINDINGS: There are calcifications in the right flank up to 4 mm in size may relate to kidney stones. No ureteric stone is seen. Unremarkable bowel gas pattern is noted. IMPRESSION: Calcifications of the right flank up to 4 mm in size are suggestive of right kidney stones. Dictated by: Dictated on workstation # [id number]
== END ==
LOC: RAD 15:37
PROVIDERS: ATTEND Urology
DX: N20.0 Calculus of kidney (principal)
CPT/HCPCS: 74000

== ENCOUNTER → 2019-10-02 | Outpatient (CLI) | payer BC ==
[~2019-10-02] MED LIST changes: +HYDR-34 PO; -HYDR-3816 PO; +HYDR-4196 PO; -HYDR-753 PO; -TAMS0.4C98 PO; +TMSL.4C PO
--- NOTE | 2019-10-02 09:51 | Diagnostic Imaging Report ---
HISTORY: Left shoulder pain after fall. TECHNIQUE: Three views of the left shoulder. COMPARISON: None. FINDINGS: No acute fracture or dislocation is seen in the left shoulder. Alignment appears normal. There are moderate degenerative changes in the left acromioclavicular joint. IMPRESSION: 1. Degenerative changes in the left shoulder with no acute osseous abnormality seen. Dictated by: Dictated on workstation # [id number]
== END ==
LOC: RAD FS 09:23
PROVIDERS: ATTEND Nurse Practitioner
DX: M25.512 Pain in left shoulder (principal)
CPT/HCPCS: 73030

== ENCOUNTER → 2019-10-17 | Outpatient (CLI) | payer BC ==
[~2019-10-17] VITALS: Ht 175.3 cm; Wt 86.4 kg
[~2019-10-17] MED LIST changes: +CATHETER FLUSH 10 ML SYR IV PRN; +GADOBUTROL 7.5 MMOL/7.5 ML (GADAVIST) VIAL IV ONE; +IOHEXOL 300 MG/ML 50 ML (OMNIPAQUE 300) VIAL IV ONE; +LIDOCAINE 1% INJ 20 ML 20 ML VIAL INJ ONE
--- NOTE | 2019-10-17 13:20 | Diagnostic Imaging Report ---
EXAMINATION: Magnetic resonance imaging of the left shoulder with intra-articular contrast. DATE: October 17, 2019. COMPARISON: Left shoulder arthrogram October 17, 2019. Left shoulder radiographs October 02, 2019. HISTORY: 48-year-old male, left shoulder pain, limited range of motion. History of fall in pool approximately one month ago. TECHNIQUE: Magnetic Resonance Imaging sequences were performed of the shoulder following the intra-articular administration of contrast. FINDINGS: ROTATOR CUFF, LIGAMENTS, TENDONS, AND MUSCLES: There are full thickness, full width tears of both the supraspinatus and infraspinatus tendons. The subscapularis tendon is retracted to near the level of the glenoid measuring approximately 3.9 cm as measured on axial T1 fat saturation post contrast image 15. The supraspinatus tendon is retracted just medial to the level of the superior humeral head by 3.3 cm. The infraspinatus and teres minor tendons are intact. There is no prominent fatty muscle atrophy. LONG HEAD OF BICEPS: The long head of biceps tendon is medially dislocated outside of the bicipital groove. The long head of biceps tendon is otherwise intact. GLENOHUMERAL JOINT: The humeral head is not anteriorly or posteriorly subluxed. The labrum is grossly intact. There is no identified paralabral cyst. There is no identified intra-articular body or prominent synovitis. The articular cartilage is grossly intact. ACROMIOCLAVICULAR JOINT: The acromioclavicular joint is normally aligned. The coracoclavicular and coracoacromial ligaments are intact. There are moderate acromioclavicular degenerative changes with osteophytes extending approximately 3 mm below the joint margin. BONE: There is no os acromiale. There is no acute fracture, bone contusion, or evidence of osteonecrosis. BURSAE AND SOFT TISSUES: There is contrast extension into the subacromial/subdeltoid bursa, consistent with the full-thickness rotator cuff tendon tears. IMPRESSION: 1. Full thickness, full width tears of both the supraspinatus and subscapularis tendons with tendon retraction as described above. No severe fatty muscle atrophy. 2. The long head of biceps tendon is medially dislocated outside of the bicipital groove and is otherwise intact. 3. No acute fracture or bone contusion. 4. Moderate acromioclavicular degenerative changes with 3 mm undersurface osteophytes. 5. Grossly intact labrum and unremarkable additional glenohumeral joint evaluation. Dictated by: Dictated on workstation # [id number]
--- NOTE | 2019-10-18 09:16 | Diagnostic Imaging Report ---
EXAMINATION: Left shoulder injection for MRI. INDICATION: Shoulder pain. COMPARISON: There are no prior studies available for comparison. FINDINGS: Following aseptic preparation of the skin and administration of local anesthesia, a 19-gauge needle was advanced into the glenohumeral joint using fluoroscopic guidance. Approximately 10 cc of mixture of Omnipaque 240, Gadavist, and sodium chloride was infused. During the course of the exam, contrast was seen extending along the inferomedial aspect of the proximal humerus and into the subacromial region. This finding suggests that there may be an injury to the subscapularis and/or long head of the biceps as well as a probable rotator cuff tear. MRI is pending for further study. IMPRESSION: There has been a successful injection of the left glenohumeral joint. MRI is pending for further evaluation. Dictated by: Dictated on workstation # [id number]
== END ==
LOC: RAD 10:07
PROVIDERS: ATTEND Nurse Practitioner
DX: S43.432A Superior glenoid labrum lesion of left shoulder, initial encounter (principal); M75.122 Complete rotator cuff tear or rupture of left shoulder, not specified as traumatic; M19.012 Primary osteoarthritis, left shoulder; Z91.81 History of falling
CPT/HCPCS: 23350; 73040; 73222

== ENCOUNTER 2020-09-12 10:16 | Day surgery (SDC) | payer BC ==
[2020-09-12] VITALS (10 sets, daily range): BP systolic 124–159; BP diastolic 74–93
[~2020-09-12] VITALS: Ht 172 cm; Wt 86.1 kg
[~2020-09-12 10:16] MED LIST changes: -CATHETER FLUSH 10 ML SYR IV PRN; -GADOBUTROL 7.5 MMOL/7.5 ML (GADAVIST) VIAL IV ONE; -HYDR-3876 PO; +HYDR-3920 PO; -IOHEXOL 300 MG/ML 50 ML (OMNIPAQUE 300) VIAL IV ONE; -LIDOCAINE 1% INJ 20 ML 20 ML VIAL INJ ONE
--- NOTE | 2020-09-12 11:40 | ED Abdominal Pain ---
General Chief Complaint: Abdominal/GI Problems Stated Complaint: KIDNEY PAIN Nursing Triage Note: pt presents to ed with complaints of generalized abdominal pain that started at 1400 yesterday. pt reports he started vomiting on 2200. pt reports he has had back pain x 3 days. Sepsis Screen: No Definite Risk Source of Information: Patient Exam Limitations: No Limitations History of Present Illness Date Seen by Provider: Sep 12, 2020 Time Seen by Provider: 11:40 Initial Comments To ER by private vehicle with reports of diffuse abdominal pain that started suddenly at 2 PM yesterday. He suspects he may have a kidney stone because he had that before but this pain is different. Timing/Duration: 1-2 Days Severity/Quality: Moderate Radiation: No Radiation Activities at Onset: None Associated Symptoms: Nausea/Vomiting Allergies and Home Medications Allergies Coded Allergies: No Known Drug Allergies (Unverified , 04/07/16) Home Medications Alprazolam 0.25 Mg Tablet, 0.25 MG PO HS, (Reported) Dicyclomine HCl 20 Mg Tablet, 20 MG PO TID Prescribed by: KINSEY CALI on 09/12/20 1244 Hydrocodone/Acetaminophen 1 Each Tablet, 1-2 EACH PO Q4H Prescribed by: YOLANDA MANRIQUE on 03/30/17 1453 Hydrocodone/Acetaminophen 1 Each Tablet, 1-2 EACH PO Q4H Prescribed by: JAZMÍN MCKINNEY on 04/12/17 113 Metoprolol Tartrate 50 Mg Tablet, 50 MG PO DAILY, (Reported) Nitrofurantoin Monohyd/M-Cryst 100 Mg Capsule, 1 TAB PO BID Prescribed by: JAZMÍN MCKINNEY on 04/12/17 113 Tamsulosin HCl 0.4 Mg Cap, 0.4 MG PO DAILY Prescribed by: JAZMÍN MCKINNEY on 04/12/17 1137 Patient Home Medication List Home Medication List Reviewed: Yes Review of Systems Review of Systems Constitutional: see HPI EENTM: No Symptoms Reported Respiratory: No Symptoms Reported Cardiovascular: No Symptoms Reported Gastrointestinal: See HPI, Abdominal Pain, Nausea Genitourinary: No Symptoms Reported Musculoskeletal: no symptoms reported Skin: no symptoms reported Psychiatric/Neurological: No Symptoms Reported Endocrine: No Symptoms Reported Past Eqixesy-Wbrplv-Weatqp Hx Patient Social History Alcohol Use: Denies Use Number of Drinks Today: AA Alcohol Beverage of Choice: Beer Smoking Status: Former Smoker Type Used: Cigarettes Former Smoker, Quit: Mar 12, 2006 Recent Infectious Disease Expo: No Recent Hopitalizations: Yes (ER 03/30) Immunizations Up To Date Tetanus Booster (TDap): Unknown Seasonal Allergies Seasonal Allergies: No Past Medical History Surgeries: Yes (C-SPINEFUSION; LITHOTRIPSIES FOR KIDNEY STONES; BILATERAL KNEE SCOPES) Orthopedic, Renal Respiratory: No Cardiac: Yes Hypertension Neurological: No Reproductive Disorders: No Sexually Transmitted Disease: No HIV/AIDS: No Genitourinary: Yes Kidney Stones Gastrointestinal: No Musculoskeletal: Yes (KNEE SCOPES BILATERALLY) Endocrine: No HEENT: No Loss of Vision: Denies Hearing Impairment: Denies Cancer: No Psychosocial: No Integumentary: No Blood Disorders: No Adverse Reaction/Blood Tranf: No (N/A) Physical Exam Vital Signs Vital Signs - First Documented 09/12/20 10:46 Temp 37.5 Pulse 70 Resp 18 B/P (MAP) 159/99 (119) Pulse Ox 96 Capillary Refill : Less Than 3 Seconds Height/Weight/BMI Height: 5'8.00" Weight: 190lbs. 0.0oz. 86.396556ow; 29.00 BMI Method:Stated General Appearance: WD/WN, no apparent distress HEENT: PERRL/EOMI, normal ENT inspection Respiratory: no respiratory distress, no accessory muscle use Cardiovascular: regular rate, rhythm, no murmur Gastrointestinal: normal bowel sounds, non tender, soft Extremities: normal range of motion, non-tender Neurologic/Psychiatric: alert, normal mood/affect, oriented x 3 Skin: normal color, warm/dry Progress/Results/Core Measures Results/Orders Lab Results Laboratory Tests Test 09/12/20 10:43 Range/Units White Blood Count 12.9 H 4.3-11.0 10^3/uL Red Blood Count 4.66 4.30-5.52 10^6/uL Hemoglobin 15.7 13.3-17.7 g/dL Hematocrit 45 40-54 % Mean Corpuscular Volume 97 80-99 fL Mean Corpuscular Hemoglobin 34 25-34 pg Mean Corpuscular Hemoglobin Concent 35 32-36 g/dL Red Cell Distribution Width 12.4 10.0-14.5 % Platelet Count 300 130-400 10^3/uL Mean Platelet Volume 9.4 9.0-12.2 fL Immature Granulocyte % (Auto) 0 % Neutrophils (%) (Auto) 87 H 42-75 % Lymphocytes (%) (Auto) 5 L 12-44 % Monocytes (%) (Auto) 8 0-12 % Eosinophils (%) (Auto) 0 0-10 % Basophils (%) (Auto) 0 0-10 % Neutrophils # (Auto) 11.1 H 1.8-7.8 10^3/uL Lymphocytes # (Auto) 0.7 L 1.0-4.0 10^3/uL Monocytes # (Auto) 1.0 0.0-1.0 10^3/uL Eosinophils # (Auto) 0.0 0.0-0.3 10^3/uL Basophils # (Auto) 0.0 0.0-0.1 10^3/uL Immature Granulocyte # (Auto) 0.1 0.0-0.1 10^3/uL Neutrophils % (Manual) 80 % Lymphocytes % (Manual) 9 % Monocytes % (Manual) 11 % Eosinophils % (Manual) 0 % Basophils % (Manual) 0 % Band Neutrophils 0 % Blood Morphology Comment NORMAL Urine Color YELLOW Urine Clarity CLEAR Urine pH 6.0 5-9 Urine Specific [place] >=1.030 1.016-1.022 Urine Protein TRACE H NEGATIVE Urine Glucose (UA) NEGATIVE NEGATIVE Urine Ketones NEGATIVE NEGATIVE Urine Nitrite NEGATIVE NEGATIVE Urine Bilirubin NEGATIVE NEGATIVE Urine Urobilinogen 1.0 < = 1.0 MG/DL Urine Leukocyte Esterase NEGATIVE NEGATIVE Urine RBC (Auto) TRACE-I NEGATIVE Urine RBC 5-10 H /HPF Urine WBC 0-2 /HPF Urine Squamous Epithelial Cells 0-2 /HPF Urine Crystals NONE /LPF Urine Bacteria TRACE /HPF Urine Casts PRESENT /LPF Urine Hyaline Casts 0-2 H /LPF Urine Mucus MODERATE H /LPF Urine Culture Indicated NO Sodium Level 137 135-145 MMOL/L Potassium Level 3.9 3.6-5.0 MMOL/L Chloride Level 98 98-107 MMOL/L Carbon Dioxide Level 28 21-32 MMOL/L Anion Gap 11 5-14 MMOL/L Blood Urea Nitrogen 11 7-18 MG/DL Creatinine 1.00 0.60-1.30 MG/DL Estimat Glomerular Filtration Rate > 60 BUN/Creatinine Ratio 11 Glucose Level 143 H 70-105 MG/DL Calcium Level 9.3 8.5-10.1 MG/DL Corrected Calcium 9.0 8.5-10.1 MG/DL Total Bilirubin 0.4 0.1-1.0 MG/DL Aspartate Amino Transf (AST/SGOT) 29 5-34 U/L Alanine Aminotransferase (ALT/SGPT) 41 0-55 U/L Alkaline Phosphatase 69 40-136 U/L Total Protein 7.4 6.4-8.2 GM/DL Albumin 4.4 3.2-4.5 GM/DL Lipase 12 8-78 U/L Urine Opiates Screen NEGATIVE NEGATIVE Urine Oxycodone Screen NEGATIVE NEGATIVE Urine Methadone Screen NEGATIVE NEGATIVE Urine Propoxyphene Screen NEGATIVE NEGATIVE Urine Barbiturates Screen NEGATIVE NEGATIVE Ur Tricyclic Antidepressants Screen NEGATIVE NEGATIVE Urine Phencyclidine Screen NEGATIVE NEGATIVE Urine Amphetamines Screen NEGATIVE NEGATIVE Urine Methamphetamines Screen NEGATIVE NEGATIVE Urine Benzodiazepines Screen NEGATIVE NEGATIVE Urine Cocaine Screen NEGATIVE NEGATIVE Urine Cannabinoids Screen NEGATIVE NEGATIVE My Orders Orders - KINSEY CALI APRN Cbc With Automated Diff (09/12/20 11:37) Comprehensive Metabolic Panel (09/12/20 11:37) Ua Culture If Indicated (09/12/20 11:37) Drug Screen Stat (Urine) (09/12/20 11:37) Ed Iv/Invasive Line Start (09/12/20 11:37) Ondansetron Injection (Zofran Injectio (09/12/20 11:45) Fentanyl Injection (Sublimaze Injection (09/12/20 11:45) Ketorolac Injection (Toradol Injection) (09/12/20 11:45) Ct Abd/Pelvis Wo(Kidney Stone) (09/12/20 11:39) Abdomen/Kub 1view (09/12/20 11:39) Manual Differential (09/12/20 10:43) Lipase (09/12/20 12:04) Us Gallbladder [id number] (09/12/20 12:50) Lidocaine 2% Viscous 15 Ml (Xylocaine Vi (09/12/20 13:15) Antacid Suspension (Mylanta Suspension (09/12/20 13:15) Medications Given in ED Current Medications Medications Dose Ordered Sig/Noni Route Start Time Stop Time Status Last Admin Dose Admin Fentanyl Citrate 50 mcg ONCE ONCE IVP 09/12/20 11:45 09/12/20 11:46 DC 09/12/20 11:48 50 MCG Ketorolac Tromethamine 15 mg ONCE ONCE IVP 09/12/20 11:45 09/12/20 11:46 DC 09/12/20 11:48 15 MG Ondansetron HCl 8 mg ONCE ONCE IVP 09/12/20 11:45 09/12/20 11:46 DC 09/12/20 11:48 8 MG Vital Signs/I&O 09/12/20 10:46 Temp 37.5 Pulse 70 Resp 18 B/P (MAP) 159/99 (119) Pulse Ox 96 Blood Pressure Mean: 119 Diagnostic Imaging Diagonstic Imaging: CT Comments NAME: ASHOK OAKLEY [facility] REC#: [id number] PT STATUS: REG ER : 1970 PHYSICIAN: KINSEY CALI GEOMETRY PROFESSOR ADMIT DATE: 09/12/20/ER Draft Date of Exam:09/12/20 CT ABD/PELVIS WO(KIDNEY STONE) PROCEDURE: CT urinary tract, rule out kidney stone. TECHNIQUE: Multiple contiguous axial images were obtained through the abdomen and pelvis without the use of intravenous contrast. Auto Exposure Controls were utilized during the CT exam to meet ALARA standards for radiation dose reduction. INDICATION: Generalized abdominal pain. Correlation is made with prior CT from 03/30/2017. Lung bases are clear apart from a calcified granuloma in the right lower lobe. No discrete liver mass is detected. Gallbladder is unremarkable. No biliary ductal dilatation is seen. The pancreas and spleen are unremarkable. No adrenal mass is detected. Right kidney does contain a nonobstructing calculus in the upper pole 4 mm in size. The left kidney contains a 3 mm calculus in the midportion. There is also approximately 2 mm calculus in the left renal pelvis. No hydronephrosis is identified. The aorta is non-aneurysmal. The small and large bowel loops are normal caliber. Appendix is unremarkable. There is no obstruction. No free fluid or fluid collection is identified. Bladder and prostate are unremarkable. Bony structures are nonacute. IMPRESSION: 1. Bilateral nonobstructive nephrolithiasis. There is also a small calculus located in the left renal pelvis. No hydronephrosis is identified. 2. No other significant abnormality is detected. Dictated on workstation # [id number] Dict: 09/12/20 1231 Trans: 09/12/20 1237 [facility] [id number] Interpreted by: SALVADOR FUNES MD Electronically signed by: Departure Impression Primary Impression: Abdominal pain Qualified Codes: R10.84 - Generalized abdominal pain Additional Impressions: Nausea and vomiting Qualified Codes: R11.2 - Nausea with vomiting, unspecified Symptomatic cholelithiasis Disposition: 01 HOME, SELF-CARE Condition: Stable Departure-Patient Inst. Decision time for Depature: 12:44 Referrals: WILL LINN MD (PCP/Family) Primary Care Physician Patient Instructions: No Instuctions Given Add. Discharge Instructions: 1. Medication as directed 2. Return to ER for any concerns 3. Follow-up with your doctor next week. Emergency department focuses on treating and ruling out life-threatening diseases. Whenever possible, a diagnosis is given. However, most patients are given an impression based on their history, physical exam, and workup during your brief time in the ER. Information about probable diagnosis and other educational material has been provided. Please take the time to read and understand this information. It is very important that you follow up with a physician as discussed during the visit today. Failure to adhere to your follow-up instructions may lead to severe disability, injury, or so please make sure to keep your appointments or obtain one as requested. All discharge instructions reviewed with patient and/or family. Voiced understanding. Scripts Dicyclomine HCl (Dicyclomine HCl) 20 Mg Tablet 20 MG PO TID, #9 TAB Prov: KINSEY CALI APRN 09/12/20 KINSEY CALI APRN Sep 12, 2020 11:40
[2020-09-12 11:43] LABS: BASOPHILS % (AUTO) 0 % (0-10); BILIRUBIN,URINE NEGATIVE (NEGATIVE); CLARITY,URINE CLEAR; COLOR,URINE YELLOW; EOSINOPHILS % (AUTO) 0 % (0-10); GLUCOSE, URINE (UA) NEGATIVE (NEGATIVE); HEMATOCRIT 45 % (40-54); HEMOGLOBIN 15.7 g/dL (13.3-17.7); KETONES,URINE NEGATIVE (NEGATIVE); LEUKOCYTE ESTERASE ,URINE NEGATIVE (NEGATIVE); LYMPHOCYTES # (AUTO) 0.7 10^3/uL (1.0-4.0); LYMPHOCYTES % (AUTO) 5 % (12-44); MEAN CORPUSCULAR HEMOGLOBIN 34 pg (25-34); MEAN CORPUSCULAR HGB CONC 35 g/dL (32-36); MEAN CORPUSCULAR VOLUME 97 fL (80-99); MEAN PLATELET VOLUME 9.4 fL (9.0-12.2); MONOCYTES % (AUTO) 8 % (0-12); NEUTROPHILS # (AUTO) 11.1 10^3/uL (1.8-7.8); NEUTROPHILS % (AUTO) 87 % (42-75); NITRITE,URINE NEGATIVE (NEGATIVE); PLATELET COUNT 300 10^3/uL (130-400); PROTEIN,URINE TRACE (NEGATIVE); WHITE BLOOD COUNT 12.9 10^3/uL (4.3-11.0)
[2020-09-12 11:44] LABS: ALBUMIN 4.4 GM/DL (3.2-4.5)
[2020-09-12 11:45] LABS: CHLORIDE 98 MMOL/L (98-107); POTASSIUM 3.9 MMOL/L (3.6-5.0); SODIUM 137 MMOL/L (135-145)
[2020-09-12] MEDS ORDERED: ONDANSETRON 4 MG/2 ML (SDV) Z0FRAN IVP ONE (11:45)
[2020-09-12] MEDS ORDERED: KETOROLAC 30 MG/ML VIAL IVP ONE (11:45)
[2020-09-12] MEDS ORDERED: fentaNYL INJECTION 100 MCG/2 ML AMP IVP ONE (11:45)
[2020-09-12 11:46] LABS: CALCIUM 9.3 MG/DL (8.5-10.1)
[2020-09-12 11:47] LABS: GLUCOSE 143 MG/DL (70-105); TOTAL PROTEIN 7.4 GM/DL (6.4-8.2)
[2020-09-12 11:48] LABS: CARBON DIOXIDE 28 MMOL/L (21-32)
[2020-09-12 11:49] LABS: BILIRUBIN,TOTAL 0.4 MG/DL (0.1-1.0)
[2020-09-12 11:50] LABS: ALKALINE PHOSPHATASE 69 U/L (40-136)
[2020-09-12 11:51] LABS: GFR ESTIMATED > 60
[2020-09-12 11:52] LABS: BUN/CREATININE RATIO 11
[2020-09-12 11:53] LABS: ALANINE AMINOTRANSFERASE 41 U/L (0-55); BACTERIA,URINE TRACE /HPF; HYALINE CASTS, URINE 0-2 /LPF; SQUAMOUS EPITHELIAL CELL,UR 0-2 /HPF; WBC,URINE 0-2 /HPF
[2020-09-12 11:56] LABS: AMPHETAMINE SCREEN, URINE NEGATIVE (NEGATIVE); BARBITURATE SCREEN URINE NEGATIVE (NEGATIVE); BENZODIAZEPINES SCREEN URINE NEGATIVE (NEGATIVE); CANNABINOID SCREEN, URINE NEGATIVE (NEGATIVE); COCAINE SCREEN URINE NEGATIVE (NEGATIVE); METHADONE STAT NEGATIVE (NEGATIVE); METHAMPHETAMINE SCREEN URINE S NEGATIVE (NEGATIVE); OPIATE SCREEN URINE NEGATIVE (NEGATIVE); OXYCODONE STAT NEGATIVE (NEGATIVE); PROPOXYPHENE STAT NEGATIVE (NEGATIVE); TRICYCLIC ANTIDEPRESSANTS SCRE NEGATIVE (NEGATIVE)
[2020-09-12 12:02] LABS: BAND NEUTROPHILS 0 %; BASOPHILS % (MANUAL) 0 %; EOSINOPHILS % (MANUAL) 0 %; LYMPHOCYTES % (MANUAL) 9 %; MONOCYTES % (MANUAL) 11 %; NEUTROPHILS % (MANUAL) 80 %; RBC MORPH NORMAL
--- NOTE | 2020-09-12 12:38 | Diagnostic Imaging Report ---
PROCEDURE: CT urinary tract, rule out kidney stone. TECHNIQUE: Multiple contiguous axial images were obtained through the abdomen and pelvis without the use of intravenous contrast. Auto Exposure Controls were utilized during the CT exam to meet ALARA standards for radiation dose reduction. INDICATION: Generalized abdominal pain. Correlation is made with prior CT from 03/30/2017. Lung bases are clear apart from a calcified granuloma in the right lower lobe. No discrete liver mass is detected. Gallbladder is unremarkable. No biliary ductal dilatation is seen. The pancreas and spleen are unremarkable. No adrenal mass is detected. Right kidney does contain a nonobstructing calculus in the upper pole 4 mm in size. The left kidney contains a 3 mm calculus in the midportion. There is also approximately 2 mm calculus in the left renal pelvis. No hydronephrosis is identified. The aorta is non-aneurysmal. The small and large bowel loops are normal caliber. Appendix is unremarkable. There is no obstruction. No free fluid or fluid collection is identified. Bladder and prostate are unremarkable. Bony structures are nonacute. IMPRESSION: 1. Bilateral nonobstructive nephrolithiasis. There is also a small calculus located in the left renal pelvis. No hydronephrosis is identified. 2. No other significant abnormality is detected. Dictated by: Dictated on workstation # [id number]
[2020-09-12] MEDS ORDERED: DICY20TA10 PO (12:44)
--- NOTE | 2020-09-12 12:45 | Diagnostic Imaging Report ---
INDICATION: Abdominal pain. Abdominal views obtained at 12:31 p.m. FINDINGS: Abdominal bowel gas pattern is unremarkable. There is prominent stool in the right colon. There is no overt obstruction or ileus. There are no suspicious calcifications. IMPRESSION: Unremarkable abdominal films. No overt obstruction or ileus. Dictated by: Dictated on workstation # [id number]
[2020-09-12] MEDS ORDERED: LIDOCAINE 2% VISCOUS 15 ML UDC PO ONE (13:15)
[2020-09-12] MEDS ORDERED: ANTACID SUSP 30 ML UDC (MYLANTA) PO ONE (13:15)
[2020-09-12] MEDS ORDERED: ceFAZolin INJECTION 2,000 MG ONE (13:53)
[2020-09-12] MEDS ORDERED: WATER (STERILE) FOR INJECTION 20 ML ONE (13:54)
[2020-09-12] MEDS ORDERED: MIDAZOLAM 2 MG/2 ML (VERSED) VIAL ONE (13:56)
[2020-09-12] MEDS ORDERED: proPOfol 200 MG/20 ML (DIPRIVAN) VIAL IV ONE (13:56)
[2020-09-12] MEDS ORDERED: ONDANSETRON 4 MG/2 ML (SDV) Z0FRAN ONE ×2 (13:56→16:11)
[2020-09-12] MEDS ORDERED: LIDOCAINE PF 2% 5 ML (XYLOCAINE) VIAL ONE (13:56)
[2020-09-12] MEDS ORDERED: ROCURONIUM 10 MG/ML 5 ML SYRINGE IV ONE (13:56)
[2020-09-12] MEDS ORDERED: GLYCOPYRROLATE 0.2 MG/ML (ROBINUL) 2 ML VIAL ONE (13:57)
[2020-09-12] MEDS ORDERED: fentaNYL INJECTION 100 MCG/2 ML AMP ONE (13:57)
[2020-09-12] MEDS ORDERED: NEOSTIGMINE 3 MG/3 ML VIAL ONE (13:57)
[2020-09-12] MEDS ORDERED: SEVOFLURANE (ULTANE) 15 ML INHAL SOLN ONE ×3 (13:57→15:17)
[2020-09-12] MEDS ORDERED: SUCCINYLCHOLINE INJ 100 MG/5 ML SYR/VIAL ONE (14:02)
[2020-09-12] MEDS ORDERED: LIDOCAINE/EPI 1%-1:100,000 (XYLOCAINE) 50 ML ONE (14:05)
[2020-09-12] MEDS ORDERED: IOPAMIDOL 61% 30 ML (ISOVUE 300) VIAL ONE (14:07)
--- NOTE | 2020-09-12 14:10 | Diagnostic Imaging Report ---
PROCEDURE: US Gallbladder. TECHNIQUE: Multiple real-time grayscale images were obtained over the right upper quadrant in various projections. INDICATION: Right upper quadrant pain and vomiting. Liver is normal in size at 16.6 cm. No discrete liver mass is detected. Portal vein is patent and shows normal direction of flow. Gallbladder does contain multiple small stones as well as sludge. The gallbladder wall is thickened up to 6 mm. No definite biliary ductal dilatation is seen. Pancreas is unremarkable. Aorta is unremarkable in the mid and distal aspect. IVC is unremarkable. Right kidney is without calculi or hydronephrosis. There is no ascites. IMPRESSION: Cholelithiasis and gallbladder wall thickening, suspicious for acute cholecystitis. Dictated by: Dictated on workstation # [id number]
--- NOTE | 2020-09-12 14:11 | Consultation - Surgery ---
History of Present Illness History of Present Illness Patient Consulted On(britney/time) 09/12/20 14:06 Date Seen by Provider: Sep 12, 2020 Time Seen by Provider: 14:06 History of Present Illness Consult requested by Kinsey Webber for cholelithiasis seen and evaluated in ED. Patient is a 49 year old male who on and off had ruq abdominal pain last couple of months. Yesterday at 2 PM began having twisting severe pain. Constant pain. Having nausea and vomiting. Pain radiates into back and around ruq. Had ct scan no acute pathology had gb u/s showing sludge/stone with thickened gb wall. Denies fever sweats chills shortness of breath or chest pain. Allergies and Home Medications Allergies Coded Allergies: No Known Drug Allergies (Unverified , 04/07/16) Home Medications Alprazolam 0.25 Mg Tablet, 0.25 MG PO HS, (Reported) Dicyclomine HCl 20 Mg Tablet, 20 MG PO TID Prescribed by: KINSEY WEBBER on 09/12/20 1244 Hydrocodone/Acetaminophen 1 Each Tablet, 1-2 EACH PO Q4H Prescribed by: YOLANDA MANRIQUE on 03/30/17 1453 Hydrocodone/Acetaminophen 1 Each Tablet, 1-2 EACH PO Q4H Prescribed by: JAZMÍN MCKINNEY on 04/12/17 1137 Metoprolol Tartrate 50 Mg Tablet, 50 MG PO DAILY, (Reported) Nitrofurantoin Monohyd/M-Cryst 100 Mg Capsule, 1 TAB PO BID Prescribed by: JAZMÍN MCKINNEY on 04/12/17 1137 Tamsulosin HCl 0.4 Mg Cap, 0.4 MG PO DAILY Prescribed by: JAZMÍN MCKINNEY on 04/12/17 1137 Patient Home Medication List Home Medication List Reviewed: Yes Past Gzgiieg-Xemrpn-Yklems Hx Patient Social History Number of Drinks Today: AA Smoking Status: Former Smoker Former Smoker, Quit: Mar 12, 2006 Type Used: Cigarettes Recent Hopitalizations: Yes (ER 03/30) Immunizations Up To Date Tetanus Booster (TDap): Unknown Seasonal Allergies Seasonal Allergies: No Surgeries History of Surgeries: Yes (C-SPINEFUSION; LITHOTRIPSIES FOR KIDNEY STONES; BILATERAL KNEE SCOPES) Surgeries: Orthopedic, Renal Respiratory History of Respiratory Disorde: No Cardiovascular History of Cardiac Disorders: Yes Cardiac Disorders: Hypertension Neurological History of Neurological Disord: No Reproductive System Hx Reproductive Disorders: No Sexually Transmitted Disease: No HIV/AIDS: No Genitourinary History of Genitourinary Disor: Yes Genitourinary Disorders: Kidney Stones Gastrointestinal History of Gastrointestinal Di: No Musculoskeletal History of Musculoskeletal Dis: Yes (KNEE SCOPES BILATERALLY) Endocrine History of Endocrine Disorders: No HEENT History of HEENT Disorders: No Loss of Vision: Denies Hearing Impairment: Denies Cancer History of Cancer: No Psychosocial History of Psychiatric Problem: No Integumentary History of Skin or Integumenta: No Blood Transfusions History of Blood Disorders: No Adverse Reaction to a Blood Tr: No (N/A) Reviewed Nursing Assessment Reviewed/Agree w Nursing PMH: Yes Family Medical History Significant Family History: No Pertinent Family Hx Review of Systems-General Constitutional: No chills, No diaphoresis, No fever EENTM: No ear pain, No blurred vision Respiratory: No cough, No dyspnea on exertion Cardiovascular: No chest pain, No edema Gastrointestinal: RUQ, abdominal pain (RUQ), nausea, vomiting Genitourinary: No decreased output, No discharge Musculoskeletal: back pain; No joint pain Skin: No change in color, No change in hair/nails Psychiatric/Neurological: Denies Anxiety, Denies Depressed All Other Systems Reviewed Negative Unless Noted: Yes (Negative excepted noted.) Physical Exam-General Problems Physical Exam Vital Signs Vital Signs - First Documented 09/12/20 10:46 Temp 37.5 Pulse 70 Resp 18 B/P (MAP) 159/99 (119) Pulse Ox 96 Capillary Refill : Less Than 3 Seconds General Appearance: WD/WN, no apparent distress HEENT: PERRL/EOMI, normal ENT inspection Neck: non-tender, supple, normal inspection Respiratory: chest non-tender, no respiratory distress, no accessory muscle use Cardiovascular: regular rate, rhythm, no edema, no JVD Gastrointestinal: soft, tenderness (ruq) Rectal: deferred Back: no CVA tenderness, no vertebral tenderness Extremities: non-tender, normal inspection Neurologic/Psychiatric: application development liaison II-XII nml as tested, no motor/sensory deficits, alert, normal mood/affect, oriented x 3 Skin: normal color, warm/dry Lymphatic: no adenopathy Data Review Labs Laboratory Tests 09/12/20 10:43: White Blood Count 12.9H, Red Blood Count 4.66, Hemoglobin 15.7, Hematocrit 45, Mean Corpuscular Volume 97, Mean Corpuscular Hemoglobin 34, Mean Corpuscular Hemoglobin Concent 35, Red Cell Distribution Width 12.4, Platelet Count 300, Mean Platelet Volume 9.4, Immature Granulocyte % (Auto) 0, Neutrophils (%) (Auto) 87H, Lymphocytes (%) (Auto) 5L, Monocytes (%) (Auto) 8, Eosinophils (%) (Auto) 0, Basophils (%) (Auto) 0, Neutrophils # (Auto) 11.1H, Lymphocytes # (Auto) 0.7L, Monocytes # (Auto) 1.0, Eosinophils # (Auto) 0.0, Basophils # (Auto) 0.0, Immature Granulocyte # (Auto) 0.1, Neutrophils % (Manual) 80, Lymphocytes % (Manual) 9, Monocytes % (Manual) 11, Eosinophils % (Manual) 0, Basophils % (Manual) 0, Band Neutrophils 0, Blood Morphology Comment NORMAL, Urine Color YELLOW, Urine Clarity CLEAR, Urine pH 6.0, Urine Specific [place] >=1.030, Urine Protein TRACEH, Urine Glucose (UA) NEGATIVE, Urine Ketones NEGATIVE, Urine Nitrite NEGATIVE, Urine Bilirubin NEGATIVE, Urine Urobilinogen 1.0, Urine Leukocyte Esterase NEGATIVE, Urine RBC (Auto) TRACE-I, Urine RBC 5- 10H, Urine WBC 0-2, Urine Squamous Epithelial Cells 0-2, Urine Crystals NONE, Urine Bacteria TRACE, Urine Casts PRESENT, Urine Hyaline Casts 0-2H, Urine Mucus MODERATEH, Urine Culture Indicated NO, Sodium Level 137, Potassium Level 3.9, Chloride Level 98, Carbon Dioxide Level 28, Anion Gap 11, Blood Urea Nitrogen 11, Creatinine 1.00, Estimat Glomerular Filtration Rate > 60, BUN/Creatinine Ratio 11, Glucose Level 143H, Calcium Level 9.3, Corrected Calcium 9.0, Total Bilirubin 0.4, Aspartate Amino Transf (AST/SGOT) 29, Alanine Aminotransferase (ALT/SGPT) 41, Alkaline Phosphatase 69, Total Protein 7.4, Albumin 4.4, Lipase 12, Urine Opiates Screen NEGATIVE, Urine Oxycodone Screen NEGATIVE, Urine Methadone Screen NEGATIVE, Urine Propoxyphene Screen NEGATIVE, Urine Barbiturates Screen NEGATIVE, Ur Tricyclic Antidepressants Screen NEGATIVE, Urine Phencyclidine Screen NEGATIVE, Urine Amphetamines Screen NEGATIVE, Urine Methamphetamines Screen NEGATIVE, Urine Benzodiazepines Screen NEGATIVE, Urine Cocaine Screen NEGATIVE, Urine Cannabinoids Screen NEGATIVE Assessment/Plan Assessment/Plan Assessment/Plan ruq abdominal pain symptomatic cholelithiasis patient discussed risks and benefits of laparoscopic cholecystectomy with intraoperative cholangiogram patient understands all risks and benefits and wishes to proceed ancef 2 grams preop NPO ZORA OH DO Sep 12, 2020 14:11
[2020-09-12] MEDS: LACTATED RINGERS 1,000 ML IV PRN ×2 (14:12→15:00)
--- NOTE | 2020-09-12 15:28 | Progress Note-Post Operative ---
Post-Operative Progess Note Surgeon (s)/Lining Feller (s) Surgeon OZRA OH DO Lining Feller: Dr. Talavera to assist in retraction dissection and closure Pre-Operative Diagnosis ruq abdominal pain, cholelithiasis Post-Operative Diagnosis cholelithiasis, acute cholecystitis Procedure & Operative Findings Date of Procedure 09/12/20 Procedure Performed/Findings PROCEDURE: Laparoscopic cholecystectomy with intraoperative cholangiogram. COMPLICATIONS: None. PROCEDURE: The patient was taken to the operating suite and was prepped and draped in sterile fashion. A surgical pause was performed. Just superior to the umbilicus, a 12 mm incision was made. Dissection was taken down to the fascia, which was then scored and grasped with a Sudheer and the abdomen was then entered. A 0 Vicryl suture was placed in a [id number] fashion and a Kaba trocar was placed and secured. Pneumoperitoneum was achieved. A 5mm trochar place in the subxyphoid and 2 in the right upper quadrant. Gallbladder distended and decompressed. Multiple gallstones erupted out of the gallbladder. The gallbladder was then grasped and elevated. The cystic duct, and cystic artery were then dissected out. Clip was placed on the distal portion of the cystic duct which was then partially transected. An arrow catheter was inserted into the duct. The cholangiogram was then performed. No filing defects and contrast made its way into the duodenum. Catheter removed. Clips were placed on proximal portion of the cystic duct and then the duct was then transected. Clips were placed along the proximal and distal portion of the cystic artery which was then transected. Hook cautery was used to dissect the gallbladder from the gallbladder fossa achieving hemostasis. The gallbladder was placed in an Endobag and removed through the 12 mm trocar site. The abdomen was then reinspected. Copious amounts of irrigation were used to irrigate the abdomen,removed stones and there were no signs of active bleeding. Hemostasis had been achieved. The 12 mm fascial defect was then closed with 0 Vicryl suture that had been placed in a [id number] fashion. The abdomen was then desufflated, the trocars were removed. The abdomen was then washed and dried. The skin was then closed using 4-0 Monocryl in a subcuticular fashion. The abdomen was washed and dried and Skin Affix was place over incisions. Patient tolerated the procedure well without any complications and was taken to the recovery room in stable condition. Anesthesia Type general Estimated Blood Loss Estimated blood loss (mL): minimal Specimens/Packing Specimens Removed gallbladder ZORA OH DO Sep 12, 2020 15:28
[2020-09-12] MEDS ORDERED: ACHD5005 PO (15:30)
[2020-09-12] MEDS ORDERED: DOCU-143 PO (15:30)
--- NOTE | 2020-09-12 15:31 | Discharge Inst-Simple/Standard ---
Discharge Inst-Standard Discharge Medications New, Converted or Re-Newed RX: RX on Chart Patient Instructions/Follow Up Plan of Care/Instructions/FU: 2-3 weeks Julianne Activity as Tolerated: No Discharge Diet: Regular Diet Other Inst to Patient Follow up Appt: Make appointment for 2 weeks. Instructions: No lifting greater than 10 pounds. No strenuous activity. May shower in 24 hours, no tub bath or soaking. Use incentive spirometer at home as directed. No Smoking Skin/Wound Care: You have special glue over incision, it will fall off on it's own. Symptoms to Report: Appetite Changes, Extremity Discoloration, Numbness/Tingling, Swelling Increased, Bleeding Excessive, Eyesight Changes, Pain Increased, Urine Color Change, Constipation(Persistent), Fever over 101 degree F, Pain/Pressure in ch est, Urinating Difficulty, Cough Up/Vomit Blood, Heart Beat Irreg/Pounding, Pain/Pressure in jaw, Vaginal Bleeding Increase, Cramps in feet or legs, Lightheadedness, Pain/Pressure in shoulder, Diarrhea(Persistent), Memory Changes Suddenly, Questions/Concerns, Weight gain consecutive days, Dizziness/Fainting, Nausea/Vomiting, Shortness of Breath, Weight gain over 2 pounds. If eyes or skin turn yellow notify physician. If questions or concerns contact your physician Or seek help at emergency department. ZORA OH DO Sep 12, 2020 15:31
--- NOTE | 2020-09-12 16:07 | Diagnostic Imaging Report ---
INDICATION: Operative cholangiogram, cholecystectomy. EXAMINATION: Intraoperative views were obtained with a portable intensifier in surgery. A total of 32 images were obtained. FINDINGS: Contrast injection was made via the cystic duct stump. The biliary tree is nondilated. There is no filling defect in the common duct. Contrast passes into the duodenum without obstruction. 8 seconds of fluoroscopy time was used. IMPRESSION: Unremarkable operative cholangiogram. Dictated by: Dictated on workstation # [id number]
[2020-09-12] MEDS ORDERED: morphine INJ 10 MG/ML 1ML (SYR OR VIAL) ONE (16:11)
[2020-09-12] MEDS ORDERED: HYDROcodone/APAP 5 MG/325 MG (LORTAB) TAB ONE (17:50)
[2020-09-12] MEDS ORDERED: HYDROcodone/APAP 5 MG/325 MG (LORTAB) TAB PO ONE (18:00)
--- NOTE | 2020-09-16 12:59 | Anesthesia-General Post-Op ---
General Patient Condition Mental Status/LOC: Same as Preop Cardiovascular: Satisfactory Nausea/Vomiting: Absent Respiratory: Satisfactory Pain: Controlled Complications: Absent Post Op Complications Complications None Follow Up Care/Instructions Patient Instructions None needed. Anesthesia/Patient Condition Patient Condition Patient is doing well, no complaints, stable vital signs, no apparent adverse anesthesia problems. No complications reported per nursing. CIELO YIN CRNA Sep 16, 2020 12:59
== END 2020-09-12 18:05 ==
LOC: EDUNIT# 10:16 → ER 10:18 → SDC 14:00
PROVIDERS: ATTEND Surgery
DX: K80.12 Calculus of gallbladder with acute and chronic cholecystitis without obstruction (principal); I10 Essential (primary) hypertension; Z79.899 Other long term (current) drug therapy; Z87.891 Personal history of nicotine dependence; Z20.822 Contact with and (suspected) exposure to COVID-19
CPT/HCPCS: 47563; 74018; 74176; 76000; 76705; 80053; 80306; 81000; 83690; 85007; 85027; 88304; 96374; 96375; 99285; U0002; 36415; 87635

== ENCOUNTER 2023-03-24 01:53 | Emergency (ER) | payer BC ==
[~2023-03-24] VITALS: Ht 172.7 cm; Wt 84.0 kg
[~2023-03-24 01:53] MED LIST changes: +ACHD5005 PO; -CIPR500T4 PO; +CIPR500T5 PO; +DICY20TA PO; +DOCU-143 PO; +HYDR-4085 PO; -HYDR-87 PO
[2023-03-24] MEDS: ONDANSETRON 4 MG/2 ML (SDV) Z0FRAN IVP ONE (02:17)
[2023-03-24] MEDS: NS IV 1000 ML 1,000 ML IV STA (02:17)
[2023-03-24] MEDS: morphine INJ 4 MG/ML 1 ML (VIAL/SYRINGE) IVP ONE ×2 (02:17→02:44)
[2023-03-24 02:21] LABS: BASOPHILS % (AUTO) 0 % (0-10); EOSINOPHILS % (AUTO) 0 % (0-10); HEMATOCRIT 45 % (40-54); HEMOGLOBIN 15.3 g/dL (13.3-17.7); LYMPHOCYTES % (AUTO) 9 % (12-44); MEAN CORPUSCULAR HEMOGLOBIN 33 pg (25-34); MEAN CORPUSCULAR HGB CONC 34 g/dL (32-36); MEAN CORPUSCULAR VOLUME 96 fL (80-99); MEAN PLATELET VOLUME 8.9 fL (9.0-12.2); MONOCYTES # (AUTO) 0.9 10^3/uL (0.0-1.0); MONOCYTES % (AUTO) 9 % (0-12); NEUTROPHILS # (AUTO) 8.6 10^3/uL (1.8-7.8); NEUTROPHILS % (AUTO) 81 % (42-75); PLATELET COUNT 305 10^3/uL (130-400); WHITE BLOOD COUNT 10.6 10^3/uL (4.3-11.0)
[2023-03-24 02:22] LABS: ALBUMIN 4.4 GM/DL (3.2-4.5)
[2023-03-24 02:24] LABS: CALCIUM 9.4 MG/DL (8.5-10.1)
[2023-03-24 02:24] LABS: CLARITY,URINE SL CLOUDY; COLOR,URINE YELLOW; GLUCOSE, URINE (UA) NEGATIVE (NEGATIVE); KETONES,URINE NEGATIVE (NEGATIVE); PROTEIN,URINE 1+ (NEGATIVE)
[2023-03-24 02:25] LABS: BACTERIA,URINE TRACE /HPF; BILIRUBIN,URINE NEGATIVE (NEGATIVE); LEUKOCYTE ESTERASE ,URINE NEGATIVE (NEGATIVE); NITRITE,URINE NEGATIVE (NEGATIVE); SQUAMOUS EPITHELIAL CELL,UR 0-2 /HPF
[2023-03-24 02:25] LABS: TOTAL PROTEIN 7.5 GM/DL (6.4-8.2)
[2023-03-24 02:27] LABS: BILIRUBIN,TOTAL 0.5 MG/DL (0.1-1.0)
[2023-03-24 02:29] LABS: CREATININE SERUM 1.22 MG/DL (0.60-1.30)
[2023-03-24] MEDS ORDERED: OXYC1TAB87 PO (03:08)
[2023-03-24] MEDS ORDERED: ONDA4TAB11 SL (03:08)
[2023-03-24] MEDS ORDERED: TMSL.4C PO (03:08)
--- NOTE | 2023-03-24 03:10 | ED Abdominal Pain ---
General Chief Complaint: Abdominal/GI Problems Stated Complaint: RIGHT LOWER ABD PAIN Nursing Triage Note: PT AMB TO RM 6 W C/O RLQ PAIN AND N/V/D SX 1800 ON 03/22/23. PT RESTLESS DURING TRIAGE D/T PAIN, STATES HE'S HAD KIDNEY STONES SEVERAL TIMES BEFORE AND THIS FEELS DIFFERENT. PT A&OX4. Source of Information: Patient Exam Limitations: No Limitations History of Present Illness Date Seen by Provider: Mar 24, 2023 Time Seen by Provider: 02:17 Initial Comments Patient is a 52-year-old male who presents to the emergency department with a chief complaint of right flank pain. He states it has been coming on over the last couple of days. Worsened this evening. He has been vomiting intermi ttently for 2 days as well. He states the pain started in his right flank and has radiated around to the right lower quadrant. He had a bout of severe diarrhea earlier this evening as well. Nonblack nonbloody. Patient has been urinating without any discomfort. No fevers or chills. No chest pain or shortness of breath. He has a long history of kidney stones but it has been ab out 6 years since he last had 1. He has passed 1 up to "08/22". He is very concerned that he has appendicitis. He has had previous cholecystectomy. Takes medications for hypertension. Timing/Duration: 1-2 Days Severity/Quality: Severe, Aching, Sharp Location: Flank (right) Radiation: RLQ Activities at Onset: None Associated Symptoms: Back Pain, Nausea/Vomiting, Other (diarrhea) Allergies and Home Medications Allergies Coded Allergies: No Known Drug Allergies (Unverified , 04/07/16) Patient Home Medication List Home Medication List Reviewed: Yes Alprazolam (Xanax) 0.25 Mg Tablet, 0.25 MG PO HS, (Reported) Entered as Reported by: KAM JUÁREZ on 03/12/16 0916 Dicyclomine HCl (Dicyclomine HCl) 20 Mg Tablet, 20 MG PO TID Prescribed by: KINSEY CALI on 09/12/20 1244 Docusate Sodium (Colace) 100 Mg Capsule, 100 MG PO BID Prescribed by: ZORA OH on 09/12/20 1530 Hydrocodone/Acetaminophen (Hydrocodone-Acetamin 5-325 mg) 1 Each Tablet, 1 EACH PO Q4H PRN for PAIN-MODERATE (5-7) Prescribed by: ZORA OH on 09/12/20 1530 Metoprolol Tartrate (Metoprolol Tartrate 50 Mg) 50 Mg Tablet, 50 MG PO DAILY, (Reported) Entered as Reported by: PURA SHIELDS on 11/23/13 1336 Nitrofurantoin Monohyd/M-Cryst (Macrobid 100 mg Capsule) 100 Mg Capsule, 1 TAB PO BID Prescribed by: JAZMÍN MCKINNEY on 04/12/17 1137 Ondansetron (Ondansetron Odt) 4 Mg Tab.rapdis, 4 MG SL Q8H PRN for NAUSEA/VOMITING Prescribed by: ANUP WORRELL on 03/24/23 0308 Oxycodone HCl/Acetaminophen (Percocet 5-325 mg Tablet) 1 Each Tablet, 1 TAB PO Q6H Prescribed by: ANUP WORRELL on 03/24/23 0308 Tamsulosin HCl (Flomax) 0.4 Mg Cap, 0.4 MG PO DAILY Prescribed by: JAZMÍN MCKINNEY on 04/12/17 113 Tamsulosin HCl (Flomax) 0.4 Mg Cap, 0.4 MG PO HS Prescribed by: ANUP WORRELL on 03/24/23 0308 Review of Systems Review of Systems Constitutional: see HPI Respiratory: No Symptoms Reported Cardiovascular: No Symptoms Reported Gastrointestinal: Abdominal Pain, Diarrhea, Nausea, Vomiting Genitourinary: No Symptoms Reported Musculoskeletal: back pain Skin: no symptoms reported Psychiatric/Neurological: No Symptoms Reported Past Vptyidi-Cojoaw-Ctpywi Hx Patient Social History Tobacco Use?: No Use of E-Cig and/or Vaping dev: Yes E-Cig or Vaping type used: Nicotine Use of E-Cig and/or Vaping Arron: Current Everyday User Substance use?: No Alcohol Use?: No Immunizations Up To Date Tetanus Booster (TDap): Unknown Seasonal Allergies Seasonal Allergies: No Past Medical History Surgery/Hospitalization HX: KIDNEY STONE Surgeries: Yes (C-SPINEFUSION; LITHOTRIPSIES FOR KIDNEY STONES; BILATERAL KNEE SCOPES) Orthopedic, Renal Respiratory: No Cardiac: Yes Hypertension Neurological: No Reproductive Disorders: No Sexually Transmitted Disease: No HIV/AIDS: No Genitourinary: Yes Kidney Stones Gastrointestinal: No Musculoskeletal: Yes (KNEE SCOPES BILATERALLY) Endocrine: No HEENT: No Loss of Vision: Denies Hearing Impairment: Denies Cancer: No Psychosocial: No Integumentary: No Blood Disorders: No Adverse Reaction/Blood Tranf: No (N/A) Family Medical History No Pertinent Family Hx Physical Exam Vital Signs Vital Signs - First Documented 03/24/23 01:59 Temp 36.8 Pulse 73 Resp 24 B/P (MAP) 158/106 (123) Pulse Ox 95 O2 Delivery Room Air Capillary Refill : Less Than 3 Seconds Height/Weight/BMI Height: 5'8.00" Weight: 190lbs. 0.0oz. 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, no motor/sensory deficits, a lert, normal mood/affect, oriented x 3 Skin: normal color, warm/dry Progress/Results/Core Measures Results/Orders Lab Results Laboratory Tests Test 03/24/23 02:03 03/24/23 02:08 Range/Units White Blood Count 10.6 4.3-11.0 10^3/uL Red Blood Count 4.62 4.30-5.52 10^6/uL Hemoglobin 15.3 13.3-17.7 g/dL Hematocrit 45 40-54 % Mean Corpuscular Volume 96 80-99 fL Mean Corpuscular Hemoglobin 33 25-34 pg Mean Corpuscular Hemoglobin Concent 34 32-36 g/dL Red Cell Distribution Width 12.1 10.0-14.5 % Platelet Count 305 130-400 10^3/uL Mean Platelet Volume 8.9 L 9.0-12.2 fL Immature Granulocyte % (Auto) 0 % Neutrophils (%) (Auto) 81 H 42-75 % Lymphocytes (%) (Auto) 9 L 12-44 % Monocytes (%) (Auto) 9 0-12 % Eosinophils (%) (Auto) 0 0-10 % Basophils (%) (Auto) 0 0-10 % Neutrophils # (Auto) 8.6 H 1.8-7.8 10^3/uL Lymphocytes # (Auto) 1.0 1.0-4.0 10^3/uL Monocytes # (Auto) 0.9 0.0-1.0 10^3/uL Eosinophils # (Auto) 0.0 0.0-0.3 10^3/uL Basophils # (Auto) 0.0 0.0-0.1 10^3/uL Immature Granulocyte # (Auto) 0.0 0.0-0.1 10^3/uL Sodium Level 136 135-145 MMOL/L Potassium Level 4.0 3.6-5.0 MMOL/L Chloride Level 103 98-107 MMOL/L Carbon Dioxide Level 23 21-32 MMOL/L Anion Gap 10 5-14 MMOL/L Blood Urea Nitrogen 13 7-18 MG/DL Creatinine 1.22 0.60-1.30 MG/DL Estimat Glomerular Filtration Rate 70 BUN/Creatinine Ratio 11 Glucose Level 149 H 70-105 MG/DL Calcium Level 9.4 8.5-10.1 MG/DL Corrected Calcium 9.1 8.5-10.1 MG/DL Total Bilirubin 0.5 0.1-1.0 MG/DL Aspartate Amino Transf (AST/SGOT) 24 5-34 U/L Alanine Aminotransferase (ALT/SGPT) 72 H 0-55 U/L Alkaline Phosphatase 111 40-136 U/L Total Protein 7.5 6.4-8.2 GM/DL Albumin 4.4 3.2-4.5 GM/DL Urine Color YELLOW Urine Clarity SL CLOUDY Urine pH 6.0 5-9 Urine Specific [place] >=1.030 1.016-1.022 Urine Protein 1+ H NEGATIVE Urine Glucose (UA) NEGATIVE NEGATIVE Urine Ketones NEGATIVE NEGATIVE Urine Nitrite NEGATIVE NEGATIVE Urine Bilirubin NEGATIVE NEGATIVE Urine Urobilinogen 1.0 < = 1.0 MG/DL Urine Leukocyte Esterase NEGATIVE NEGATIVE Urine RBC (Auto) 3+ H NEGATIVE Urine RBC 10-25 H /HPF Urine WBC NONE /HPF Urine Squamous Epithelial Cells 0-2 /HPF Urine Crystals NONE /LPF Urine Bacteria TRACE /HPF Urine Casts NONE /LPF Urine Mucus SMALL H /LPF Urine Culture Indicated NO My Orders Orders - ANUP WORRELL MD Ed Iv/Invasive Line Start (03/24/23 02:10) Cbc With Automated Diff (03/24/23 02:10) Comprehensive Metabolic Panel (03/24/23 02:10) Ua Culture If Indicated (03/24/23 02:10) Ns Iv 1000 Ml (Sodium Chloride 0.9%) (03/24/23 02:10) Ondansetron Injection (Zofran Injectio (03/24/23 02:15) Morphine Injection (Morphine Injection (03/24/23 02:15) Ct Abd/Pelvis Wo(Kidney Stone) (03/24/23 02:27) Morphine Injection (Morphine Injection (03/24/23 02:30) Glycopyrrolate Injection (Glycopyrrolate (03/24/23 03:15) Ketorolac Injection (Ketorolac Injection (03/24/23 03:15) Hydromorphone Injection (Hydromorphone (03/24/23 03:15) Rx-Oxycodone/Apap 5-325 Mg (Rx-Percocet (03/24/23 04:03) Rx-Oxycodone/Apap 5-325 Mg (Rx-Percocet (03/24/23 04:15) Medications Given in ED Current Medications Medications Dose Ordered Sig/Noni Route Start Time Stop Time Status Last Admin Dose Admin Glycopyrrolate 0.2 mg ONCE ONCE IV 03/24/23 03:15 03/24/23 03:16 DC 03/24/23 03:21 0.2 MG Hydromorphone HCl 0.5 mg ONCE ONCE IV 03/24/23 03:15 03/24/23 03:16 DC 03/24/23 03:19 0.5 MG Ketorolac Tromethamine 15 mg ONCE ONCE IVP 03/24/23 03:15 03/24/23 03:16 DC 03/24/23 03:19 15 MG Morphine Sulfate 4 mg ONCE ONCE IVP 03/24/23 02:15 03/24/23 02:16 DC 03/24/23 02:17 4 MG Morphine Sulfate 4 mg ONCE ONCE IVP 03/24/23 02:30 03/24/23 02:31 DC 03/24/23 02:44 4 MG Ondansetron HCl 8 mg ONCE ONCE IVP 8/10/23 02:15 03/24/23 02:16 DC 03/24/23 02:17 8 MG Oxycodone/ Acetaminophen 1 ea Q4H PRN PO 03/24/23 04:15 03/24/23 04:17 DC 03/24/23 04:11 1 EA Vital Signs/I&O 03/24/23 03/24/23 01:59 04:16 Temp 36.8 Pulse 73 89 Resp 24 18 B/P (MAP) 158/106 (123) 139/87 Pulse Ox 95 95 O2 Delivery Room Air Room Air Blood Pressure Mean: 123 Progress Progress Note : Time: 04:07 Progress Note Patient seen and evaluated by me. Evaluation today includes physical exam, CBC, CMP, UA, CT abdomen and pelvis renal stone protocol. Pertinent physical exam findings - WDWN male in moderate distress due to right flank pain and RLQ abdominal pain. Actively retching. VSS. Abdomen soft without peritnoeal signs - he does have TTP to the Rt flank and RLQ. No rashes. Normal BS. regular heart and clear lungs. DDx based on H&P - kidney stone Labs indepedently reviewed and interpreted by me. CBC shows normal WBC at 10.6 with normal H&H. CMP normal other than mildly elevated glucose at 149. Normal renal function and electrolytes. UA is concentrated with sg > 1.030, 1+ protein and RBC 10-25. CT reviewed and interpreted by me shows right sided hydronephrosis with perinephric stranding and a 6x6mm prox ureteral stone. Patient is treated with NS 1L as well as 2 doses of 4mg of morphine which did not really help his pain. I switched to 15mg of IV toradol as well as 0.2mg Robinul and 0.5mg of Dilaudid. He had 4mg of IV zofran as well which all seemed to help immensely. His pain at discharge was about a "2". Patient would like to follow up with his PCP and go to [facility] for Urology follow up. He is sent home with pain medications, flomax, nausea med. He is given a urine strainer and advised if he develops a fever to return to the ER. Precautions provided in both verbal and written format. His is at the bedside and is also comfortable with discharge. All questions are sought and answered. Diagnostic Imaging Diagonstic Imaging: CT Comments CT abd pelvis - reviewed and interpreted by me. prox right sided ureteral stone 6 x6 mm with hydronephrosis Departure Impression Primary Impression: Right ureteral calculus Disposition: HOME, SELF-CARE Condition: Improved Departure-Patient Inst. Decision time for Depature: 04:07 Referrals: LAURA FINCH DO (PCP/Family) Primary Care Physician Patient Instructions: Kidney stones in adults Add. Discharge Instructions: Drink lots of fluids to stay well hydrated. Strain your urine every time you urinate. Take the flomax 0.4mg every night. Oxycodone/acetaminophen 5mg/325mg with an additional ES Tylenol every 6 hours as needed for pain. Ondansetron 4mg dissolving tablets every 8 hours as needed for nausea. Please follow up with a Urologist at [facility] for further evaluation and management of the kidney stone. If you develop a fever over 101 with the stone please return to the Emergency D epartment for re-evaluation. Scripts Tamsulosin HCl (Flomax) 0.4 Mg Cap 0.4 MG PO HS for 14 Days, #14 CAP Prov: ANUP WORRELL MD 03/24/23 Oxycodone HCl/Acetaminophen (Percocet 5-325 mg Tablet) 1 Each Tablet 1 TAB PO Q6H for PAIN-MODERATE MDD 6 TABS, #20 TAB Prov: ANUP WORRELL MD 03/24/23 Ondansetron (Ondansetron Odt) 4 Mg Tab.rapdis 4 MG SL Q8H PRN for NAUSEA/VOMITING, #15 TAB Prov: ANUP WORRELL MD 03/24/23 Work/School Note: Work Release Form Date Seen in the Emergency Department: Mar 24, 2023 Return to Work: Mar 25, 2023 Copy Copies To 1: LAURA FINCH KATHRYN M MD Mar 24, 2023 03:10
[2023-03-24] MEDS: KETOROLAC INJ 15 MG/ML VIAL IVP ONE (03:19)
[2023-03-24] MEDS: HYDROmorphone INJECTION 2 MG/ML VIAL IV ONE (03:19)
[2023-03-24] MEDS: GLYCOPYRROLATE INJ 0.2 MG/ML 2 ML VIAL IV ONE (03:21)
[2023-03-24] MEDS: RX-OXYCODONE/APAP 5-325 MG #4 TAB PK PO ONE (04:10)
[2023-03-24] MEDS: RX-OXYCODONE/APAP 5-325 MG #4 TAB PK PO PRN (04:11)
[2023-03-24 04:16] VITALS: BP 139/87
--- NOTE | 2023-03-24 07:09 | Diagnostic Imaging Report ---
PROCEDURE: CT urinary tract, rule out kidney stone. TECHNIQUE: Multiple contiguous axial images were obtained through the abdomen and pelvis without the use of intravenous contrast. Auto Exposure Controls were utilized during the CT exam to meet ALARA standards for radiation dose reduction. INDICATION: Lower abdominal pain. COMPARISON: 09/12/2020 FINDINGS: Included portions of the lung bases are clear. Benign calcified granulomas noted. CT ABDOMEN: A 5-6 mm calculus is identified at the right UPJ. As a result, there is moderate proximal hydronephrosis and asymmetric stranding of the perirenal fat. Multiple additional punctate nonobstructive bilateral renal calculi are also present. There is no hydroureteronephrosis or other evidence of obstruction on the left. The adrenal glands, spleen, pancreas, and liver have an unremarkable noncontrast CT appearance. Small bowel loops are nondilated. Normal appendix is identified. There is colonic diverticulosis, but no CT evidence of acute diverticulitis. There is no loculated fluid collection, free fluid or free air within the abdomen. No abnormal mesenteric or retroperitoneal adenopathy is seen. Osseous structures show no acute abnormalities CT PELVIS: Urinary bladder is unopacified and nondistended. No calculi are seen within urinary bladder. There is no loculated fluid collection, free fluid or free air. No abnormal lymph nodes are seen. Osseous structures show no acute abnormalities. IMPRESSION: 1. Moderate right-sided hydronephrosis secondary to 5-6 mm calculus at the right UPJ. 2. Additional punctate nonobstructive bilateral renal calculi. 3. Colonic diverticulosis, but no CT evidence of acute diverticulitis. 4. I agree with [facility] report. Dictated by: Dictated on workstation # [id number]
== END 2023-03-24 04:16 | disposition home or self-care (01) ==
LOC: EDUNIT# 01:53 → ER 01:55
DX: N13.2 Hydronephrosis with renal and ureteral calculous obstruction (principal); F17.290 Nicotine dependence, other tobacco product, uncomplicated
CPT/HCPCS: 36415; 74176; 80053; 81000; 85025